=== PATIENT | female | born 1955 | race Caucasian/White ===

== ENCOUNTER 2016-05-11 01:49 | Inpatient (IN) | payer MEDICARE, MEDICAID ==
[~2016-05-11] VITALS: Ht 160 cm; Wt 81.3 kg
[2016-05-11] VITALS (11 sets, daily range): BP systolic 95–129; BP diastolic 51–60; O2SAT 89
[~2016-05-11 01:49] MED LIST: /CELE20CA PO; /ESOM40CA PO; /HYDR1TAB PO; ALB2.5NEB NEB; ALBU17IN INH; ASPI1TAB PO; ASPI325T28 PO; ASPI81TA85 PO; ATIV0.5T3 PO; ATOR1TAB21 PO; AUGM500T34 PO; AZEL0.1S; BACL-67 PO; BACL10TA2 PO; BENA25CA PO; BUSP10TA78 PO; BUSP15TA47 PO; CALCTAB43 PO; CEFT500T PO; CELE-19 PO; CIPR500T89 PO; CITRTAB6 PO; CLIN1LOT TOP; CLON0.5T PO; CLON1TAB PO; CYCL10TA PO; CYMB60CA3 PO; DAILTAB65 PO; DETR4CAP PO; DEXI30CA PO; DOCU100C PO; DOCU10CA PO; DONETAB6 PO; DRIS50002 PO; FAMO1TAB11 PO; FLUT1SPR2; FLUT50SP; FURO40TA2 PO; GABA100C PO; GABA300C2 PO; GABA600T PO; GAS X PO; GAS-80CH PO; HYDR10T PO; ICYHOT TOP; IPRASOL4 NEB; LISI-542 PO; LISI5TAB PO; LORA10TA2 PO; MAG PO; MECL-68 PO; METH10TA PO; MICOCRE PV; MIRA33504 PO; MUCI600T34 PO; MUPI2CRE EX; OXYB15TA PO; PENN1SOL2 TOP; PENNSAID TOP; PERC5TAB6 PO; POLY33502 PO; PRAV80TA2 PO; PRED10TA PO; PRED20TA PO; PROAAER IN; ROPI2TAB PO; SODIGEL; TIZA4CAP3 PO; TRAM50TA2 PO; TYLE325T5 PO; VIST25CA PO; VITAD1000T PO; VOLT1GEL2 EXT; ZITH250T PO; ZOLP12.515 PO; ZONI100C2 PO; ZONI25CA2 PO; [UNRECOGNIZED DRUG - CODE] PO; [UNRECOGNIZED DRUG - CODE] TOP; [UNRECOGNIZED DRUG - MIXTURE] TOP; [UNRECOGNIZED DRUG - OTHER] TOP
[2016-05-11] MEDS ORDERED: IPRATROPIUM 0.5MG/ALBUTEROL 2.5MG INH SOL UD 3ML (DUONEB)(J7620) As Ordered ONE ×2 (02:33→09:03)
[2016-05-11 02:46] LABS: BASO % 0.1 % (0.0-1.0); EOS # 0.2 K/mm3 (0.0-0.50); EOS % 1.8 % (0.0-3.0); LARGE UNSTAINED CELL # 0.2 K/mm3 (0.0-0.4); LARGE UNSTAINED CELL % 1.4 % (0.0-4.0); LYMPH # 0.8 K/mm3 (1.5-4.5); LYMPH % 5.9 % (24.0-44.0); MEAN CORPUSCULAR HEMOGLOBIN 22.7 pg (27.0-33.0); MEAN CORPUSCULAR HGB CONC 29.6 g/dl (32.0-36.5); MEAN CORPUSCULAR VOLUME 76.8 fl (80.0-96.0); MONO # 0.7 K/mm3 (0.0-0.8); MONO % 4.8 % (0.0-5.0); NEUTROPHILS # 11.8 K/mm3 (1.8-7.7); NEUTROPHILS % 85.9 % (36.0-66.0); PLATELET COUNT, AUTOMATED 384 k/mm3 (150-450); RED CELL DISTRIBUTION WIDTH 17.6 % (11.5-14.5); WHITE BLOOD COUNT 13.7 K/mm3 (4.0-10.0)
[2016-05-11 02:56] LABS: ABG BASE EXCESS 6.6 (-2.0-2.0); ABG DEVICE NASAL CANN; ABG HCO3 31.2 MEQ/L (22.0-26.0); ABG PARTIAL PRESSURE CO2 45.1 mmHg (35.0-45.0); ABG PARTIAL PRESSURE O2 61.1 mmHg (75.0-100.0); ABG STANDARD HCO3 30.3 MEQ/L (22.0-26.0); ABG TOTAL CO2 32.6 MEQ/L (23.0-31.0); ABG pH (ARTERIAL) 7.458 UNITS (7.350-7.450)
[2016-05-11 02:57] LABS: ANION GAP 9 MEQ/L (8-16); BLOOD UREA NITROGEN 14 MG/DL (7-18); CALCIUM LEVEL 8.6 MG/DL (8.8-10.2); CARBON DIOXIDE LEVEL 33 MEQ/L (21-32); CHLORIDE LEVEL 103 MEQ/L (98-107); CREATININE FOR GFR 0.59 MG/DL (0.55-1.02); GLOMERULAR FILTRATION RATE > 60.0 (>45); GLUCOSE, FASTING 77 MG/DL (80-110); POTASSIUM SERUM 3.8 MEQ/L (3.5-5.1); SODIUM LEVEL 145 MEQ/L (136-145)
[2016-05-11] MEDS ORDERED: ISOVUE-370 76% 100ML VIAL (Q9967) As Ordered ONE (03:10)
--- NOTE | 2016-05-11 04:00 | REPUSA ---
CLINICAL HISTORY: Shortness of breath. TECHNIQUE: Multiple axial CT images were obtained through chest with IV contrast material. MPR fernandez l and sagittal sequences were obtained. COMMENTS: Comparison is made to the prior exam performed on 04/25/2016. No change in minimal right pleural effusion. Mild increase in left pleural effusion. Mild increase in passive atelectatic airspace disease a stat left lower lobe. No change in enlarged pulmonary arteries suggestive of pulmonary hypertension. No change in chronic interstitial pulmonary fibrosis, interstitial thickening, architectural distorti on and traction bronchiectasis. Increased groundglass densities of the lungs. There is no evidence of pleural or parenchymal mass. Mild increase in mediastinal lymphadenopathy. The visualized portions of the liver are of uniform attenuation without mass or defect. There is no i ntra or extrahepatic biliary ductal dilatation. The spleen is unremarkable. The visualized pancreas is of normal contour and attenuation characteristics. There is no evidence of adrenal mass. The visualized portions of the kidneys present no abnormalities . The bony structures are free of lytic or blastic lesions. Multilevel degenerative changes are seen in volving the thoracic spine. Scattered calcifications are seen involving the aorta and visualized major branches compatible with a therosclerosis. IMPRESSION: No change in minimal right pleural effusion. Mild increase in left pleural effusion. Mild increase in passive atelectatic airspace disease a stat left lower lobe. No change in enlarged pulmonary arteries suggestive of pulmonary hypertension. Increased groundglass densities of the lungs. There is no evidence of pleural or parenchymal mass. Mild increase in mediastinal lymphadenopathy. Thank you for your kind referral of this patient.
[2016-05-11] MEDS ORDERED: ZOSYN 3.375 GM VIAL (J2543) As Ordered ONE (04:25)
[2016-05-11] MEDS ORDERED: IPRATROPIUM 0.5MG/ALBUTEROL 2.5MG INH SOL UD 3ML (DUONEB)(J7620) NEB PRN (05:15)
[2016-05-11] MEDS ORDERED: IPRASOL4 NEB (05:30)
[2016-05-11] MEDS ORDERED: PRED20TA PO (05:30)
[2016-05-11] MEDS ORDERED: FURO40TA2 PO (05:30)
[2016-05-11] MEDS ORDERED: MUCI600T34 PO (05:30)
[2016-05-11] MEDS ORDERED: SIMETHICONE 80 MG CHEW TAB PO PRN (06:00)
[2016-05-11] MEDS ORDERED: hydrOXYzine 10 MG TAB PO PRN (06:00)
[2016-05-11] MEDS ORDERED: MECLIZINE 25 MG TABLET PO PRN (06:00)
[2016-05-11] MEDS ORDERED: MIRALAX *UNIT DOSE* 17GM PACKET PO PRN (06:00)
[2016-05-11] MEDS: ZONISAMIDE 100 MG CAP (ZONEGRAN) PO SCH ×2 (09:00→22:18)
[2016-05-11] MEDS: guaiFENesin ER 600 MG TAB PO SCH ×2 (09:00→21:12)
[2016-05-11] MEDS ORDERED: FUROSEMIDE 40 MG TAB PO SCH (09:00)
[2016-05-11] MEDS ORDERED: predniSONE 20 MG TAB PO SCH (09:00)
[2016-05-11] MEDS: CALCIUM/VITAMIN D 500 MG TAB PO SCH (09:00)
[2016-05-11] MEDS: GABAPENTIN 300 MG CAP PO SCH ×3 (09:00→21:12)
[2016-05-11] MEDS: rOPINIRole 1MG TAB PO SCH ×3 (09:00→21:12)
[2016-05-11] MEDS: ENOXAPARIN 30 MG/0.3 ML SYR (J1650) SC SCH (09:00)
[2016-05-11] MEDS: IPRATROPIUM 0.5MG/ALBUTEROL 2.5MG INH SOL UD 3ML (DUONEB)(J7620) NEB SCH ×3 (09:10→19:32)
[2016-05-11] MEDS ORDERED: ENOXAPARIN 30 MG/0.3 ML SYR (J1650) As Ordered ONE (09:40)
--- NOTE | 2016-05-11 09:44 | REP ---
PORTABLE CHEST: AP portable view of the chest is performed and compared to a prior study of 04/30/2016. Diffuse bilateral infiltrates are present, similar to the prior exam. There is a left pleural effusion. The heart size is not well evaluated. IMPRESSION: Diffuse bilateral infiltrates with mild to moderate left pleural effusion. Signed by Dennis Wall MD 05/11/2016 04:10 P
--- NOTE | 2016-05-11 10:04 | EDDOCDS ---
Physician Documentation [facility] Name: Faiza Bolivar Age: 60 yrs Sex: Female : 1955 Arrival Date: 05/11/2016 Time: 01:49 Bed Admit Hold Private MD: Shy Horvath NP Disposition: 05/11/16 05:11 Hospitalization ordered by Bill Anna for Inpatient Admission. Preliminary diagnosis are Other pneumonia, unspecified organism, Hypoxemia. - Bed requested for ICU. - Status is Inpatient Admission. dwg - Condition is Stable. - Problem is an acute exacerbation. - Symptoms have improved. Historical: - Allergies: No known drug Allergies; - Home Meds: 1. acetaminophen 325 mg Oral tab 2 tabs every 6 hours as needed 2. albuterol sulfate 90 mcg/actuation Inhl aepb 2 puffs every 2 jours as needed 3. aspirin 325 mg Oral tab 1 tab twice a day 4. [place] Saline nasal inha twice a day as needed 5. atorvastatin 20 mg oral tab 1 tab nightly 6. Celebrex 200 mg Oral cap 1 cap once daily 7. cyclobenzaprine 10 mg Oral tab 1 tab daily as needed 8. Cymbalta 60 mg Oral cpDR 1 cap twice a day 9. Dexilant 30 mg oral CpDB 1 cap once daily 10. famotidine 20 mg Oral tab 1 tab once daily 11. gabapentin 600 mg Oral tab 1 tab 3 times per day 12. Hydroxyzine 20 mg Oral 1 tab 4 times per day 13. meclizine 50 mg Oral tab 1 tab 2 times per day as needed 14. Pennsaid 2 % Topical 2 times per day 15. polyethylene glycol 3350 17 gram/dose oral powd once daily as needed 16. ropinirole 2 mg oral tab 1 tab 3 times per day 17. simethicone 166 mg Oral cap before meals as needed 18. tramadol 50 mg Oral tab 1 tab every 6 hours as needed 19. Vitamin D Oral 47489 unit every 2 weeks 20. zonisamide 100 mg oral cap 1 cap 2 times per day - PMHx: Fibromyalgia; GERD; lung cancer; Restless legs; rt breast cancer; Chaudhari's Esophagus; Anxiety; Vertigo; Depression; - PSHx: Elbow, left ulnar nerve; Tonsillectomy; Carpal Tunnel Repair- Right; Lumpectomy- Right; Elbow, right ulnar nerve; partial knee replacement left; left lung surgery; - Social history: Smoking status: Patient states former smoker of tobacco. No barriers to communication noted, The patient speaks fluent [place], Speaks appropriately for age. - Family history: Not pertinent. - : The pt / caregiver states he / she is not on anticoagulants. Home medication list is obtained from [employer] import data. - Exposure Risk Screening:: None identified. Vital Signs: 05/11 02:01 BP 102 / 55; Pulse 83; Resp 24 S; Temp 97.8(TE); Pulse Ox 94% on 6 lpm NC; Weight 82.8 jp4 kg / 182.54 lbs (M); Height 5 ft. 3 in. (160.02 cm) (R); Pain 4/10; 05:08 BP 122 / 45 (auto/); cf2 05:09 Pulse 94 MON; Pulse Ox 91% ; cf2 05:23 BP 132 / 75 (auto/); cf2 05:24 Pulse 92 MON; Pulse Ox 90% ; cf2 06:08 BP 92 / 60 (auto/); dwg 06:08 Pulse 95 MON; Pulse Ox 89% ; dwg 06:23 BP 147 / 62 (auto/); dwg 06:23 Pulse 93 MON; Pulse Ox 93% ; dwg 06:53 BP 137 / 74 (auto/); dwg 06:54 Pulse 95 MON; Pulse Ox 87% ; dwg 06:56 Pulse 87 MON; Pulse Ox 91% ; cf2 07:08 BP 128 / 58 (auto/); cf2 07:09 Pulse 97 MON; Pulse Ox 87% ; cf2 07:19 BP 103 / 60; Pulse 92; Resp 22; Temp 97.2(T); Pulse Ox 94% on R/A; dwg 07:23 BP 80 / 50 (auto/); dwg 07:24 Pulse 92 MON; Pulse Ox 94% ; dwg 08:35 BP 131 / 69; Pulse 92; Resp 20; Pulse Ox 93% on 5 lpm NC; dwg 09:29 BP 120 / 59; Pulse 91; Resp 20; Pulse Ox 92% on 5 lpm NC; Pain 0/10; dwg 02:01 Body Mass Index 32.34 (82.80 kg, 160.02 cm) jp4 MDM: 02:16 -Blood Culture (Adults Only), peripheral from different site, or from device/port/PICC mm11 etc. if present ordered. 02:16 Call Respiratory ordered. 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 mm11 02:16 IV Saline Lock ordered. mm11 02:16 Oxygen at 4L/Min NC or Home dosage ordered. mm11 02:16 Rhythm Strip to chart ordered. mm11 02:16 Albuterol-Ipratropium 3 ml Inhalation once ordered. mm11 02:17 -Arterial Blood Gas Ordered. EDMS 02:17 -Blood Culture Ordered. EDMS 02:17 B-Type Natiuretic Peptide Ordered. EDMS 02:17 Basic Metabolic Profile Ordered. EDMS 02:17 CBC with Diff Ordered. EDMS 02:17 Cardiac Injury Profile Ordered. EDMS 02:17 Troponin Ordered. EDMS 02:17 ECG WITH READING ER PHYS+CARDIAG ordered. EDMS 02:18 Chest, 1 View Ordered. EDMS 02:23 Call Respiratory complete. tmm1 02:25 -Blood Culture (Adults Only), peripheral from different site, or from device/port/PICC tmm1 etc. if present complete. 02:26 BLOOD CULTURES Ordered. EDMS 03:04 -Arterial Blood Gas Reviewed. mm11 03:04 Basic Metabolic Profile Reviewed. mm11 03:04 CBC with Diff Reviewed. mm11 03:04 Cardiac Injury Profile Reviewed. mm11 03:04 Troponin Reviewed. mm11 03:06 CT Chest With Contrast Ordered. EDMS 04:04 Financial registration complete. slh 04:05 B-Type Natiuretic Peptide Reviewed. mm11 04:09 BED REQUEST+ADM ordered. EDMS 04:16 [facility] Payment Agreement was scanned into N(i)² and attached to record. h 04:20 Piperacillin-Tazobactam 3.375 grams IVPB once over 30 mins; dilute in 50mL of NS or D5W mm11 ordered. 05:04 CT Chest With Contrast Reviewed. mm11 05:19 Admission / Observation Status ordered. EDMS 09:39 REGULAR DIET ordered. EDMS Administered Medications: 03:06 Drug: Albuterol-Ipratropium 3 ml [ipratropium-albuterol 0.5 mg-3 mg(2.5 mg base)/3 mL dk nebulization soln (3 mL)] Route: Inhalation; 04:25 Drug: Piperacillin-Tazobactam 3.375 grams [piperacillin-tazobactam 3.375 gram cf2 intravenous solution] Route: IVPB; Infused Over: 30 mins; Site: left antecubital; 07:12 Follow up: Response: No Adverse Reaction cf2 Signatures: Dispatcher [employer] EDDennis Cardoso RN RN dwg Peters, Mary, RN RN mcp Maynard, Matthew, DO mm11 McLear, Ivonne, [employer] SPECIALIST [employer] SPECIALIST tmm1 Sue Doss Hossein Castro RN RN nn1 Mara Davenport RN RN cf2 Ernestine Connors The chart was reviewed and I authenticate all verbal orders and agree with the evaluation and treatment provided.Corrections: (The following items were deleted from the chart) 09:39 05:19 REGULAR DIET ordered. EDMS EDMS Attachments: 04:16 [facility] Payment Agreement [facility] MTDD
--- NOTE | 2016-05-11 10:04 | EDDOCDS ---
Nurse's Notes [facility] Name: Faiza Bolivar Age: 60 yrs Sex: Female : 1955 Arrival Date: 05/11/2016 Time: 01:49 Bed Admit Hold Private MD: Shy Horvath NP Diagnosis: Other pneumonia, unspecified organism;Hypoxemia Presentation: 05/11 01:55 Presenting complaint: EMS states: patient admitted for pneumonia 3 weeks ago, patient nn1 reports difficulty breathing began this AM, progressively worsening symptoms. Patient had 1 duoneb treatment at 0000. Patient placed on 10L nonrebreather by EMS, O2 saturation increased from 86% to 99%. Adult Sepsis Screening: The patient does not have new or worsening altered mentation. Patient's respiratory rate is less than 22. Systolic blood pressure is greater than 100. Patient has a qSOFA score of 0- Negative Sepsis Screen. Suicide/Homicide risk assessment- the patient denies having any suicidal and/or homicidal ideations and does not present with any other emotional, behavioral or mental health complaints. Status: Patient is not a technical service specialist or dependent. Transition of care: patient was not received from another setting of care. 01:55 Acuity: ERROL Level 3 nn1 01:55 Method Of Arrival: Ambulance nn1 Triage Assessment: 02:01 General: Appears in no apparent distress, comfortable, Behavior is appropriate for age, nn1 cooperative. Pain: Denies pain. HIV screening NA for this visit Offered previously. The patient is triaged at the bedside. See Assessment in Nurses Notes section of ED record. Respiratory: Onset: The symptoms/episode began/occurred yesterday, Airway is patent Respiratory effort is even, Respiratory pattern is regular, Breath sounds are clear bilaterally. Derm: Skin is yellow. Historical: - Allergies: No known drug Allergies; - Home Meds: 1. acetaminophen 325 mg Oral tab 2 tabs every 6 hours as needed 2. albuterol sulfate 90 mcg/actuation Inhl aepb 2 puffs every 2 jours as needed 3. aspirin 325 mg Oral tab 1 tab twice a day 4. Ashuelot Saline nasal inha twice a day as needed 5. atorvastatin 20 mg oral tab 1 tab nightly 6. Celebrex 200 mg Oral cap 1 cap once daily 7. cyclobenzaprine 10 mg Oral tab 1 tab daily as needed 8. Cymbalta 60 mg Oral cpDR 1 cap twice a day 9. Dexilant 30 mg oral CpDB 1 cap once daily 10. famotidine 20 mg Oral tab 1 tab once daily 11. gabapentin 600 mg Oral tab 1 tab 3 times per day 12. Hydroxyzine 20 mg Oral 1 tab 4 times per day 13. meclizine 50 mg Oral tab 1 tab 2 times per day as needed 14. Pennsaid 2 % Topical 2 times per day 15. polyethylene glycol 3350 17 gram/dose oral powd once daily as needed 16. ropinirole 2 mg oral tab 1 tab 3 times per day 17. simethicone 166 mg Oral cap before meals as needed 18. tramadol 50 mg Oral tab 1 tab every 6 hours as needed 19. Vitamin D Oral 95633 unit every 2 weeks 20. zonisamide 100 mg oral cap 1 cap 2 times per day - PMHx: Fibromyalgia; GERD; lung cancer; Restless legs; rt breast cancer; Chaudhari's Esophagus; Anxiety; Vertigo; Depression; - PSHx: Elbow, left ulnar nerve; Tonsillectomy; Carpal Tunnel Repair- Right; Lumpectomy- Right; Elbow, right ulnar nerve; partial knee replacement left; left lung surgery; - Social history: Smoking status: Patient states former smoker of tobacco. No barriers to communication noted, The patient speaks fluent French, Speaks appropriately for age. - Family history: Not pertinent. - : The pt / caregiver states he / she is not on anticoagulants. Home medication list is obtained from [employer] import data. - Exposure Risk Screening:: None identified. Screenin:00 Screening information is obtained from the patient, the caregiver. Fall risk: At risk cf2 due to gait disturbance, O2 dependent, chronic shortness of breath . Assistance ADL's: Requires assistance with toileting, assistance is provided by ambulation, assistance is provided by housework, assistance is provided by. Abuse/DV Screen: The patient / caregiver reports he/she is: not in a situation that causes fear, pain or injury. Nutritional screening: No deficits noted. Advance Directives: There is an active DNR order and the pt has a copy here at this time. Further advance directive information is declined. home support is adequate. Assessment: 02:00 General: Appears uncomfortable. Pain: Denies pain. Neurological: No deficits noted. cf2 EENT: No deficits noted. Cardiovascular: No deficits noted. Rhythm is sinus rhythm. Cardiovascular: Chest pain is denied There has been no movement of pain. Reports shortness of breath. Respiratory: Airway is patent Respiratory effort is labored, pursed lip, with retractions, Respiratory pattern is tachypnea Breath sounds with rales Reports shortness of breath the patient has severe shortness of breath Parent/caregiver reports the patient having Per patient and sister (caregiver), patient was admitted here as patient approx 3 weeks ago for pleural effusion and pneumonia. Per patient. "they took 2 liters off on the left and i had pneumonia on the right side". GI: No deficits noted. : No deficits noted. Derm: No deficits noted. Musculoskeletal: No deficits noted. 02:00 Reassessment: Patient states symptoms have improved. cf2 04:39 Adult Sepsis Screening: The patient does not have new or worsening altered mentation. cf2 Patient has a respiratory rate of greater than or equal to 22 (1 point). Systolic blood pressure is greater than 100. Patient has a qSOFA score of 1- Negative Sepsis Screen. 07:01 General: Report received by Mara Carreon RN, awake and alert, visiting with dwg family member.. 07:20 General: Appears in no apparent distress, Behavior is cooperative, pleasant, Awake and dwg alert, sitting up in bed visiting with family members, NSR on monitor, denies chest pain.. 08:26 General: Appears in no apparent distress, Behavior is cooperative. Pain: Denies pain. dwg Neurological: Level of Consciousness is awake, alert, Oriented to person, place, time. Cardiovascular: Rhythm is sinus rhythm No ectopy. 08:35 General: Appears in no apparent distress, Behavior is cooperative. Neurological: Level dwg of Consciousness is awake, alert, Oriented to person, place, time. Respiratory: Airway is patent Respiratory effort is even, Respiratory pattern is regular, Breath sounds are diminished in left upper lobe and left lower lobe. 09:29 General: Appears in no apparent distress, Behavior is cooperative, Awake and alert, ate dwg 50% of breakfast tray, denies chest discomfort or shortness of breath. Family members present.. 09:52 General: Appears in no apparent distress, Behavior is cooperative, pleasant. Pain: dwg Denies pain. Neurological: Level of Consciousness is awake, alert, Oriented to person, place, time. Cardiovascular: Rhythm is sinus rhythm No ectopy. Respiratory: Airway is patent Respiratory effort is Slightly labored. 09:55 General: Report called to Inga in ICU.. [facility] Vital Signs: 02:01 BP 102 / 55; Pulse 83; Resp 24 S; Temp 97.8(TE); Pulse Ox 94% on 6 lpm NC; Weight 82.8 jp4 kg (M); Height 5 ft. 3 in. (160.02 cm) (R); Pain 4/10; 05:08 BP 122 / 45 (auto/); cf2 05:09 Pulse 94 MON; Pulse Ox 91% ; cf2 05:23 BP 132 / 75 (auto/); cf2 05:24 Pulse 92 MON; Pulse Ox 90% ; cf2 06:08 BP 92 / 60 (auto/); dwg 06:08 Pulse 95 MON; Pulse Ox 89% ; dwg 06:23 BP 147 / 62 (auto/); dwg 06:23 Pulse 93 MON; Pulse Ox 93% ; dwg 06:53 BP 137 / 74 (auto/); dwg 06:54 Pulse 95 MON; Pulse Ox 87% ; dwg 06:56 Pulse 87 MON; Pulse Ox 91% ; cf2 07:08 BP 128 / 58 (auto/); cf2 07:09 Pulse 97 MON; Pulse Ox 87% ; cf2 07:19 BP 103 / 60; Pulse 92; Resp 22; Temp 97.2(T); Pulse Ox 94% on R/A; dwg 07:23 BP 80 / 50 (auto/); dwg 07:24 Pulse 92 MON; Pulse Ox 94% ; dwg 08:35 BP 131 / 69; Pulse 92; Resp 20; Pulse Ox 93% on 5 lpm NC; dwg 09:29 BP 120 / 59; Pulse 91; Resp 20; Pulse Ox 92% on 5 lpm NC; Pain 0/10; dwg 02:01 Body Mass Index 32.34 (82.80 kg, 160.02 cm) jp4 Vitals: 04:47 Log In Time N/A - ambulance arrival. cf2 ED Course: 01:50 Patient visited by Ivonne Everett PCA. tmm1 01:50 Shy Horvath is Private Physician. tmm1 01:50 Patient moved to Waiting tmm1 01:50 Patient moved to 3 tmm1 01:57 Triage Initiated nn1 02:00 The patient / caregiver is instructed regarding the plan of care and ED course. Cardiac cf2 monitor on. Pulse ox on. NIBP on. Door closed. Noise minimized. Visitors limited. Lights dimmed. Moved to private room. PO fluids given. Verbal reassurance given. Warm blanket given. Pillow given. Diet: Patient given ice chips. Tolerated well. 02:00 Inserted saline lock: 20 gauge in left antecubital area and blood collected. The cf2 patient tolerated the procedure well. No procedures done that require assistance. Response to O2 therapy: Other With severe dyspnea NRB placed, when dyspnea resolves home O2 at 6 lpm nasal cannula applied. 02:03 Patient visited by Anshu Barros. jp4 02:03 Patient has correct armband on for positive identification. Placed in gown. Bed in low jp4 position. Call light in reach. Side rails up X2. 02:05 Rogers Cha DO is Attending Physician. mm11 02:05 Patient visited by Rogers Cha DO. mm11 02:16 Patient visited by Rogers Cha DO. mm11 02:30 EKG done. (by ED staff). Reviewed by Rogers Cha DO. jmv 02:32 Patient visited by Lai Baires PCA. jmv 02:32 Patient visited by Lai Baires PCA. jmv 02:34 Mara Davenport,YAEL is Primary Nurse. cf2 03:01 Patient moved to Radiology jason 03:02 Patient moved to 3 jason 03:46 Patient visited by Mara Davenport RN. cf2 04:07 CT Chest With Contrast Returned. EDMS 04:16 Patient name changed from Faiza\\S\\Estela\\S\\Anabaptism\\S\\ to Faiza\\S\\M\\S\\Anabaptism. EDMS 04:16 [facility] Payment Agreement was scanned into [employer] and attached to record. slh 04:23 Patient visited by Mara Davenport,YAEL. cf2 04:38 Patient visited by Mara Davenport,YAEL. cf2 05:10 Patient visited by Rogers Cha DO. mm11 05:10 Bill Anna is Hospitalizing Provider. mm11 05:42 Patient moved to Admit Hold sls1 06:43 Assisted to bedside commode. carly 06:44 Patient visited by Gaby Caal PCA. carly 07:02 Patient visited by Dennis Roberts RN. dwg 07:21 Patient visited by Dennis Roberts RN. dwg 08:27 Patient visited by Dennis Roberts RN. dwg 08:36 Patient visited by Dennis Roberts RN. dwg 09:30 Patient visited by Dennis Roberts RN. dwg 09:59 Patient visited by Dennis Roberts RN. dwg 10:03 Patient visited by Dennis Roberts RN. dwg Administered Medications: 03:06 Drug: Albuterol-Ipratropium 3 ml [ipratropium-albuterol 0.5 mg-3 mg(2.5 mg base)/3 mL dk nebulization soln (3 mL)] Route: Inhalation; 04:25 Drug: Piperacillin-Tazobactam 3.375 grams [piperacillin-tazobactam 3.375 gram cf2 intravenous solution] Route: IVPB; Infused Over: 30 mins; Site: left antecubital; 07:12 Follow up: Response: No Adverse Reaction cf2 RT: 03:06 ABG's drawn from left radial artery drawn from left brachial artery pressure held for 5 dk minuntes no bleeding noted pressure bandage applied specimen sent pt. tolerated well. 03:07 Initial Med Neb Given as ordered Patient was instructed and evaluated on procedure dk Patient tolerated procedure well without adverse effect. O2 via nasal cannula \\T\\ 5L/min. Respiratory: Airway is patent Respiratory effort is even, Respiratory pattern is regular symmetrical, Order Results: Lab Order: -Arterial Blood Gas; SPEC'M 05/11/16 02:50 Test: ABG pH (ARTERIAL); Value: 7.458; Range: 7.350-7.450; Abnormal: Above high normal; Units: UNITS; Status: F Test: ABG PARTIAL PRESSURE CO2; Value: 45.1; Range: 35.0-45.0; Abnormal: Above high normal; Units: mmHg; Status: F Test: ABG PARTIAL PRESSURE O2; Value: 61.1; Range: 75.0-100.0; Abnormal: Below low normal; Units: mmHg; Status: F Test: ABG TOTAL CO2; Value: 32.6; Range: 23.0-31.0; Abnormal: Above high normal; Units: MEQ/L; Status: F Test: ABG HCO3; Value: 31.2; Range: 22.0-26.0; Abnormal: Above high normal; Units: MEQ/L; Status: F Test: ABG BASE EXCESS; Value: 6.6; Range: -2.0-2.0; Abnormal: Above high normal; Status: F Test: ABG STANDARD HCO3; Value: 30.3; Range: 22.0-26.0; Abnormal: Above high normal; Units: MEQ/L; Status: F Test: ABG O2 SATURATION; Value: 91.9; Range: 95.0-99.0; Abnormal: Below low normal; Units: %; Status: F Test: ABG DEVICE; Value: NASAL MORAIMA; Status: F Lab Order: B-Type Natiuretic Peptide; [facility] 05/11/16 02:21 Test: BRAIN NATRIURETIC PEPTIDE; Value: 96.9; Range: <100; Units: PG/ML; Status: F Lab Order: Basic Metabolic Profile; [facility] 05/11/16 02:21 Test: GLUCOSE, FASTING; Value: 77; Range: 80-110; Abnormal: Below low normal; Units: MG/DL; Status: F Test: BLOOD UREA NITROGEN; Value: 14; Range: 7-18; Units: MG/DL; Status: F Test: CREATININE FOR GFR; Value: 0.59; Range: 0.55-1.02; Units: MG/DL; Status: F Test: GLOMERULAR FILTRATION RATE; Value: > 60.0; Range: >45; Status: F Test: SODIUM LEVEL; Value: 145; Range: 136-145; Units: MEQ/L; Status: F Test: POTASSIUM SERUM; Value: 3.8; Range: 3.5-5.1; Units: MEQ/L; Status: F Test: CHLORIDE LEVEL; Value: 103; Range: 98-107; Units: MEQ/L; Status: F Test: CARBON DIOXIDE LEVEL; Value: 33; Range: 21-32; Abnormal: Above high normal; Units: MEQ/L; Status: F Test: ANION GAP; Value: 9; Range: 8-16; Units: MEQ/L; Status: F Test: CALCIUM LEVEL; Value: 8.6; Range: 8.8-10.2; Abnormal: Below low normal; Units: MG/DL; Status: F Test Note: ; Units are mL/min/1.73 m2 Chronic Kidney Disease Staging per NKF: Stage I & II GFR >=60 Normal to Mildly Decreased Stage III GFR 30-59 Moderately Decreased Stage IV GFR 15-29 Severely Decreased Stage V GFR <15 Very Little GFR Left ESRD GFR <15 on KNOT TIER Lab Order: CBC with Diff; SPEC'M 05/11/16 02:21 Test: WHITE BLOOD COUNT; Value: 13.7; Range: 4.0-10.0; Abnormal: Above high normal; Units: K/mm3; Status: F Test: RED BLOOD COUNT; Value: 4.81; Range: 4.00-5.40; Units: M/mm3; Status: F Test: HEMOGLOBIN; Value: 10.9; Range: 12.0-16.0; Abnormal: Below low normal; Units: g/dl; Status: F Test: HEMATOCRIT; Value: 37.0; Range: 36.0-47.0; Units: %; Status: F Test: MEAN CORPUSCULAR VOLUME; Value: 76.8; Range: 80.0-96.0; Abnormal: Below low normal; Units: fl; Status: F Test: MEAN CORPUSCULAR HEMOGLOBIN; Value: 22.7; Range: 27.0-33.0; Abnormal: Below low normal; Units: pg; Status: F Test: MEAN CORPUSCULAR HGB CONC; Value: 29.6; Range: 32.0-36.5; Abnormal: Below low normal; Units: g/dl; Status: F Test: RED CELL DISTRIBUTION WIDTH; Value: 17.6; Range: 11.5-14.5; Abnormal: Above high normal; Units: %; Status: F Test: PLATELET COUNT, AUTOMATED; Value: 384; Range: 150-450; Units: k/mm3; Status: F Test: NEUTROPHILS %; Value: 85.9; Range: 36.0-66.0; Abnormal: Above high normal; Units: %; Status: F Test: LYMPH %; Value: 5.9; Range: 24.0-44.0; Abnormal: Below low normal; Units: %; Status: F Test: MONO %; Value: 4.8; Range: 0.0-5.0; Units: %; Status: F Test: EOS %; Value: 1.8; Range: 0.0-3.0; Units: %; Status: F Test: BASO %; Value: 0.1; Range: 0.0-1.0; Units: %; Status: F Test: LARGE UNSTAINED CELL %; Value: 1.4; Range: 0.0-4.0; Units: %; Status: F Test: NEUTROPHILS #; Value: 11.8; Range: 1.8-7.7; Abnormal: Above high normal; Units: K/mm3; Status: F Test: LYMPH #; Value: 0.8; Range: 1.5-4.5; Abnormal: Below low normal; Units: K/mm3; Status: F Test: MONO #; Value: 0.7; Range: 0.0-0.8; Units: K/mm3; Status: F Test: EOS #; Value: 0.2; Range: 0.0-0.50; Units: K/mm3; Status: F Test: BASO #; Value: 0.0; Range: 0.0-0.2; Units: K/mm3; Status: F Test: LARGE UNSTAINED CELL #; Value: 0.2; Range: 0.0-0.4; Units: K/mm3; Status: F Lab Order: Cardiac Injury Profile; [facility] 05/11/16 02:21 Test: CPK CREATINE PHOSPHOKINASE; Value: 24; Range: 26-192; Abnormal: Below low normal; Units: U/L; Status: F Test: CK-MB VALUE MASS; Value: 1.0; Range: 0.0-3.6; Units: NG/ML; Status: F Test: MB/CK RELATIVE INDEX; Value: 4.16; Range: < OR =4; Abnormal: Above high normal; Status: F Test Note: ; DIAGNOSIS CRITERIA MMB ng/ml Relative Index (RI) NON-AMI < or = 5 N/A [place] > 5 < or = 4 AMI > 5 > 4 Lab Order: Troponin; [facility] 05/11/16 02:21 Test: TROPONIN I; Value: 0.04; Range: < 0.10; Units: NG/ML; Status: F Test Note: ; Troponin I Reference Interval for [employer] [place] LOCI: 99th Percentile= 0.00-0.045 ng/ml Risk Stratification: <= 0.10 ng/ml Decreased Risk for Adverse Clinical Events. 0.10-1.50 ng/ml Increased Risk for Adverse Clinical Events. Evaluation of additional criterion and/or repeat testing in 2-6 hours is suggested to rule out myocardial damage. >= 1.50 ng/ml Indicative of Myocardial Injury. Radiology Order: CT Chest With Contrast Test: CT Chest With Contrast REASON FOR EXAMINATION: Shortness of Breath; ; CLINICAL HISTORY: Shortness of breath.; TECHNIQUE: Multiple axial CT images were obtained through chest with IV contrast material. MPR fernandez; l and sagittal sequences were obtained.; COMMENTS:; Comparison is made to the prior exam performed on 04/25/2016.; No change in minimal right pleural effusion.; Mild increase in left pleural effusion.; Mild increase in passive atelectatic airspace disease a stat left lower lobe.; No change in enlarged pulmonary arteries suggestive of pulmonary hypertension.; No change in chronic interstitial pulmonary fibrosis, interstitial thickening, architectural distorti; on and traction bronchiectasis.; Increased groundglass densities of the lungs.; There is no evidence of pleural or parenchymal mass.; Mild increase in mediastinal lymphadenopathy.; The visualized portions of the liver are of uniform attenuation without mass or defect. There is no i; ntra or extrahepatic biliary ductal dilatation.; The spleen is unremarkable.; The visualized pancreas is of normal contour and attenuation characteristics.; There is no evidence of adrenal mass. The visualized portions of the kidneys present no abnormalities; .; The bony structures are free of lytic or blastic lesions. Multilevel degenerative changes are seen in; volving the thoracic spine.; Scattered calcifications are seen involving the aorta and visualized major branches compatible with a; therosclerosis.; IMPRESSION:; No change in minimal right pleural effusion.; Mild increase in left pleural effusion.; Mild increase in passive atelectatic airspace disease a stat left lower lobe.; No change in enlarged pulmonary arteries suggestive of pulmonary hypertension.; Increased groundglass densities of the lungs.; There is no evidence of pleural or parenchymal mass.; Mild increase in mediastinal lymphadenopathy.; Thank you for your kind referral of this patient.; ; ; Outcome: 02:00 CT Study completed. cf2 05:11 Decision to Hospitalize by Provider. mm11 10:02 Discharge Assessment: patient administered narcotics - no. Admitted to ICU accompanied dwg by nurse, accompanied by tech, via stretcher, with oxygen, on monitor, with chart. Condition: stable. Property :Personal belongings accompany Pt. 10:03 The following High Risk Discharge criteria are identified: None. dwg 10:03 Patient left the ED. dwg Signatures: Dispatcher [employer] EDDennis Cardoso, RN RN dwg Juan M Mcintyre Dianna,RT RT Rogers Yuen, DO DO mm11 Gaby Caal, CUSTOMS PATROL OFFICER CUSTOMS PATROL OFFICER carly Adrianne Spivey, RN RN sls1 Ivonne Everett, CUSTOMS PATROL OFFICER CUSTOMS PATROL OFFICER tmm1 Anshu Barros jp4 Sue Doss Nikkole,YAEL RN nn1 Mara Davenport,RN RN cf2 Lai Baires, CUSTOMS PATROL OFFICER CUSTOMS PATROL OFFICER jmv MTDD
--- NOTE | 2016-05-11 10:34 | IPN ---
DATE: 05/11/2016 Faiza is seen in the emergency room. She is in an interim bed. She was admitted with shortness of breath. She had just been discharged 05/03/2016, was stable on discharge, became increasingly short of breath over the last few days and was readmitted. She has a history of recent community acquired pneumonia. She has severe chronic obstructive pulmonary disease (COPD) on chronic high flow supplemental oxygen 6 liters nasal cannula. She has recurrent pleural effusion, history of lung cancer, and tobacco abuse. She is followed by Dr. Mejia at [facility]. She was started on Zosyn and kept on her discharge dose of prednisone and her discharge dose of furosemide. She feels short of breath with minimal exertion. Short of breath with prolonged talking in the emergency room. PHYSICAL EXAMINATION: Vital signs per flow sheet. Oxygen saturation 89% on 6 liters. GENERAL APPEARANCE: Chronically ill appearing, dyspneic with prolonged speaking. HEENT: She is cushingoid. LUNGS: Have decreased breath sounds. Rales at both bases. HEART: Regular rate and rhythm. ABDOMEN: Soft, nontender. 1+ peripheral edema. LABORATORIES: White count 13.7, hemoglobin 10.9, platelets 284, sodium 145, potassium 3.8, BUN 14, creatinine 0.5. Chest x-ray was reviewed with Dr. Arias. No discreet infiltrate. Looks like a pulmonary edema pattern. IMPRESSION: 1. Acute respiratory failure superimposed on chronic respiratory failure. Looks like decompensated heart failure. Will start a sliding scale of Lasix, trying to maintain to 1.5 liter net diuresis daily. She had an echocardiogram done on 04/19/2016 which showed normal left ventricular ejection fraction (LVEF), moderate pulmonary hypertension, left atrial enlargement, ejection fraction 65%. 2. Recent community acquired pneumonia. I do not see any strong evidence of pneumonia currently. This case was discussed with Dr. Arias. He recommended to continue Zosyn for now. I will get a respiratory panel. 3. Chronic obstructive pulmonary disease (COPD) exacerbation. Stop by mouth steroids and begin IV steroids. Continue bronchodilator. Pulmonary consulted at patient request. 4. History of lung cancer status post prophylactic total brain radiation. Was smoking until recently. Incidentally, Dr. Mejia has concern that she still has malignancy present. Follows as an outpatient. 5. Advanced directives. She has a Medical Order for Life-Sustaining Treatment (MOLST) form from her last admission. She is DO NOT RESUSCITATE, DO NOT INTUBATE status. Does want hospitalization and antibiotics, would not want a feeding tube but would want IV fluids.
[2016-05-11] MEDS: DULoxetine 30 MG CAP (CYMBALTA) PO SCH ×2 (11:05→21:11)
[2016-05-11] MEDS: oxyBUTYnin *DITROPAN XL* 5 MG TABCR PO SCH (11:06)
[2016-05-11] MEDS: ASPIRIN 81 MG ENTERIC TAB PO SCH (11:06)
[2016-05-11] MEDS: POTASSIUM CHLORIDE 10 MEQ SR TABLET PO SCH ×2 (11:07→21:12)
[2016-05-11] MEDS: methylPREDNISolone INJ 125 MG/2 ML VIAL (J2930) IV SCH ×2 (11:07→21:11)
[2016-05-11] MEDS: FAMOTIDINE 20 MG TAB PO SCH (11:35)
[2016-05-11] MEDS: FUROSEMIDE 100 MG/10 ML VIAL (J1940) IV SCH ×2 (11:37→18:00)
[2016-05-11] MEDS ORDERED: CelecoXIB (CeleBREX) 100 MG CAP PO SCH (12:00)
[2016-05-11] MEDS: PIPERACILLIN/TAZOBACTAM SOD 3.375 GM in D5W MINI-BAG PLUS 50 ML IV SCH ×2 (13:22→21:11)
[2016-05-11] MEDS: ACETAMINOPHEN 325 MG TAB PO PRN (13:23)
[2016-05-11] MEDS ORDERED: SLF 3 ML SYR IV PRN (14:00)
[2016-05-11] MEDS: SLF 3 ML SYR IV SCH ×2 (14:00→21:12)
--- NOTE | 2016-05-11 19:06 | ECGEPIP ---
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
[2016-05-11] MEDS: ATORVASTATIN 20 MG TAB PO SCH (21:11)
[2016-05-12] VITALS (7 sets, daily range): BP systolic 101–121; BP diastolic 51–58; O2SAT 94
[2016-05-12] MEDS: FUROSEMIDE 100 MG/10 ML VIAL (J1940) IV SCH ×3 (00:06→12:42)
--- NOTE | 2016-05-12 00:26 | HPE ---
DATE OF ADMISSION: 05/11/2016 REASON FOR ADMISSION: Shortness of breath PRIMARY CARE PROVIDER: Ayde Horvath HISTORY OF PRESENT ILLNESS: The patient is a 60-year-old female with a past medical history significant for lung cancer status post chemoradiation, presented to the emergency room complaining of shortness of breath. The patient was recently admitted for pneumonia three weeks ago. Completed a course of antibiotics. Stated that over the past week, she has been feeling progressively worsening shortness of breath, chills, subjective fevers and dry cough. The patient normally on oxygen 6 liters. Today, she has been requiring more. Stated she gets short of breath with minimal activity. Finally called the ambulance and was brought in. She was found to have oxygen saturation to be 86%. She was placed on 10 liters non-rebreather by [facility] ([facility]). CT scan of her lungs were done. It showed no change in the right pleural effusion, mild increase in the left pleural effusion, increase in atelectatic air space disease in the left lower lobe. Evidence of pulmonary hypertension, increased ground-glass densities of the lung, no evidence of pleural or parenchymal masses. Hospitalist was called for an admission for family practice group REVIEW OF SYSTEMS: 12-point review of systems obtained all which was negative except for those mentioned above. PAST MEDICAL HISTORY: Significant for mild fibromyalgia, gastroesophageal reflux disease, history of lung cancer status post chemoradiation, restless leg, right breast cancer, Chaudhari esophagus and anxiety, vertigo, depression. PAST SURGICAL HISTORY: Bilateral elbow surgery, tonsillectomy, carpal tunnel repair, lumpectomy on the right, partial knee replacement and thoracentesis. SOCIAL HISTORY: The patient has history of tobacco abuse, but quit. Drinks occasionally. Lives at home with her sister. ALLERGIES: She has no known drug allergies. FAMILY HISTORY: Noncontributory. HOME MEDICATIONS INCLUDE: - Tylenol 650 mg by mouth as needed for pain - Ventolin 2 puffs inhaled every 2 hours as needed for shortness of breath - aspirin 81 mg by mouth daily - atorvastatin 20 mg by mouth at bedtime - calcium with vitamin D - Celebrex 200 mg by mouth daily - Cymbalta 50 mg by mouth daily - famotidine 20 mg by mouth daily - Lasix 40 mg by mouth daily - gabapentin 600 mg by mouth three times a day - Mucinex 600 mg by mouth twice a day - hydroxyzine as needed for itching - meclizine 25 mg by mouth as needed for dizziness - oxybutynin 50 mg by mouth daily - MiraLax as needed for constipation - prednisone 20 mg by mouth daily - Requip 2 mg by mouth three times a day - Gas-X as needed for gas pain. - nasal spray - tramadol 50 mg as needed for pain - vitamin D 92573 units every two weeks - Zonegran 100 mg by mouth twice a day PHYSICAL EXAMINATION: VITALS: On admission, blood pressure 102/55, pulse 83, respiratory rate 24, temperature 97.8. HEENT: Pupils equal round reactive to light and accommodation. NECK: Supple. No jugular venous distension (JVD). LUNGS: Diminished breath sounds in all lung mitchell. CARDIAC: Regular rate and rhythm. ABDOMEN: Soft, nontender, nondistended. EXTREMITIES: No clubbing, cyanosis or edema. NEURO: Cranial nerves II-XII grossly intact. No focal deficits. LABORATORY FINDINGS: Blood gas pH 7.45, pCO2 45, pO2 61, bicarbonate 31.2. White blood count (WBC) is 13.7, hemoglobin 10.9, hematocrit 37, platelet count 384. Sodium 145, potassium 3.8, chloride 103, BUN 14, creatinine 0.59, troponin 0.04, BNP 96.9. IMAGING: As above. ASSESSMENT/PLAN: 1. Shortness of breath, likely secondary to chronic obstructive pulmonary disease (COPD) versus lung fibrosis versus pulmonary effusion. The patient normally sees Dr. Sierra will continue oxygen supplementation. Continue DuoNeb as needed and scheduled. The patient was started on Zosyn in the emergency room. We will continue. The patient may require another thoracentesis 2. History of lung cancer status post chemoradiation. The patient completed chemoradiation in February. She was diagnosed small-cell lung cancer. 3. Mild leukocytosis likely reactive secondary to steroid versus infection. 4. History of gastroesophageal reflux disease. Continue home medication. 5. History of restless leg, continue Requip 6. History of anxiety. Continue the patient's home medication. 7. Deep vein thrombosis (DVT) prophylaxis. Lovenox subcutaneously daily.
[2016-05-12] MEDS: IPRATROPIUM 0.5MG/ALBUTEROL 2.5MG INH SOL UD 3ML (DUONEB)(J7620) NEB SCH ×4 (01:24→20:14)
[2016-05-12 05:21] LABS: MEAN CORPUSCULAR HEMOGLOBIN 22.8 pg (27.0-33.0); MEAN CORPUSCULAR HGB CONC 31.2 g/dl (32.0-36.5); MEAN CORPUSCULAR VOLUME 72.9 fl (80.0-96.0); RED CELL DISTRIBUTION WIDTH 18.9 % (11.5-14.5)
[2016-05-12 05:35] LABS: ALBUMIN/GLOBULIN RATIO 0.73 (1.00-1.93); ALKALINE PHOSPHATASE 149 U/L (45-117); ALT/SGPT 25 U/L (12-78); ANION GAP 7 MEQ/L (8-16); AST/SGOT 6 U/L (15-37); BILIRUBIN,TOTAL 0.3 MG/DL (0.2-1.0); BLOOD UREA NITROGEN 18 MG/DL (7-18); CALCIUM LEVEL 9.2 MG/DL (8.8-10.2); CARBON DIOXIDE LEVEL 37 MEQ/L (21-32); CHLORIDE LEVEL 96 MEQ/L (98-107); CREATININE FOR GFR 0.72 MG/DL (0.55-1.02); GLOMERULAR FILTRATION RATE > 60.0 (>45); GLUCOSE, FASTING 126 MG/DL (80-110); POTASSIUM SERUM 4.1 MEQ/L (3.5-5.1); SODIUM LEVEL 140 MEQ/L (136-145); TOTAL PROTEIN 7.1 GM/DL (6.4-8.2)
[2016-05-12] MEDS: PIPERACILLIN/TAZOBACTAM SOD 3.375 GM in D5W MINI-BAG PLUS 50 ML IV SCH ×3 (05:41→21:38)
[2016-05-12] MEDS: SLF 3 ML SYR IV SCH ×3 (05:44→21:34)
[2016-05-12] MEDS: POTASSIUM CHLORIDE 10 MEQ SR TABLET PO SCH ×2 (08:29→21:34)
[2016-05-12] MEDS: ASPIRIN 81 MG ENTERIC TAB PO SCH (08:29)
[2016-05-12] MEDS: CALCIUM/VITAMIN D 500 MG TAB PO SCH (08:29)
[2016-05-12] MEDS: GABAPENTIN 300 MG CAP PO SCH ×3 (08:29→21:36)
[2016-05-12] MEDS: guaiFENesin ER 600 MG TAB PO SCH ×2 (08:29→21:36)
[2016-05-12] MEDS: rOPINIRole 1MG TAB PO SCH ×3 (08:29→21:36)
[2016-05-12] MEDS: ZONISAMIDE 100 MG CAP (ZONEGRAN) PO SCH ×2 (08:30→21:37)
[2016-05-12] MEDS: DULoxetine 30 MG CAP (CYMBALTA) PO SCH ×2 (08:30→21:36)
[2016-05-12] MEDS: ENOXAPARIN 30 MG/0.3 ML SYR (J1650) SC SCH (08:30)
[2016-05-12] MEDS ORDERED: guaiFENesin ER 600 MG TAB PO ONE (08:45)
[2016-05-12] MEDS: BISACODYL 10 MG SUPP PR SCH ×2 (09:00→21:37)
[2016-05-12] MEDS ORDERED: guaiFENesin ER 600 MG TAB PO SCH (09:00)
[2016-05-12] MEDS: oxyBUTYnin *DITROPAN XL* 5 MG TABCR PO SCH (10:05)
[2016-05-12] MEDS: methylPREDNISolone INJ 125 MG/2 ML VIAL (J2930) IV SCH ×2 (10:05→21:34)
--- NOTE | 2016-05-12 10:58 | IPNPDOC ---
Assessment/Plan Date Seen The patient was seen on 05/12/16. Patient Summary Patient admitted 05/11/2016 for acute shortness of breath Problems Problems: (1) Shortness of breath Status: Acute Problem Text: Patient is improved somewhat on antibiotics and steroids. She continues to have a large pleural effusion, which is stable from previous. Her previous thoracentesis from her past admission yielded 1200 mL of yellow fluid. Cytology was negative for malignancy. Cytology was read as reactive mesothelial cells and admixed white blood cells. Acid-fast smear was negative. Sputum culture showed moderate gram-positive cocci in clusters. Pleural fluid grew no bacteria, and no organisms were seen on smear. Unclear whether or not there is any infectious etiology, however her previous studies do not indicate an infective source. It was also negative for malignancy. She does have a somewhat protuberant belly, so it is possible that this is ascitic fluid from her belly. BNP was 67 making acute heart failure less likely. She is currently diuresed 3 L. - Pulmonology consulting, appreciate recommendations - Continue ceftriaxone and prednisone for possible exacerbation of COPD versus underlying pneumonia - Continue supplemental oxygen to maintain saturations above 90 - Out of bed with assistance ad maria eugenia - Right upper quadrant ultrasound to evaluate liver of evidence of abdominal fluid (2) Pleural effusion Status: Acute Response to Treatment: Stable Problem Text: No major changes noted on CT. Patient was previously tapped on last admission. BNP is normal, making CHF less likely. Patient has diuresed 3 L. She is not volume overloaded on exam, so I will stop scheduled Lasix so she does not have kidney injury. We can reassess if she is found to have ascites. (3) Hypoxemia Status: Acute Response to Treatment: Improving Problem Text: Patient off high flow Ventimask, now on nasal cannula. -Oxygen to maintain saturations above 90% -Plan to transfer out of ICU tomorrow if patient remains stable (4) Restless leg syndrome Status: Chronic Problem Text: Continue home ropinirole (5) DNR (do not resuscitate) Status: Chronic Problem Text: DNR/DNI Plan / VTE VTE Prophylaxis Ordered?: Yes Plan / Urinary Catheter Reason for insertion/continuin: Critical Pt monitoring Disposition Plan for transfer to stepdown unit 05/13/2016 Subjective Review of Systems CC/HPI The patient is a 60-year-old female admitted with a reason for visit of Shortness Of Breath. Events since last encounter Patient states that her breathing is improved today. She's had some desaturations with activity, although this is improved. She is not able to get out of bed without dyspnea. Constitutional: Denies: Chills, Fever Pulmonary: Reports: Cough (on productive), Denies: Dyspnea, Pleuritic Chest Pain Cardiovascular: Denies: Chest Pain, Edema, Orthopnea, Palpitations Gastrointestinal: Denies: Nausea, Vomiting Other systems 10 point review systems is otherwise negative Objective Physical Examination General Exam: Positive: Alert, Cooperative, No Acute Distress Eye Exam: Positive: Conjunctiva & lids normal, Negative: Sclera icteric ENT Exam: Positive: Mucous membr. moist/pink Neck Exam: Positive: Supple, Negative: JVD, thyromegaly Chest Exam: Positive: Other (absent breath sounds in right lower lobe, reduced breath sounds bilaterally) Heart Exam: Positive: Murmurs (2/6 systolic ejection murmur), Normal S1, Normal S2, Rate Normal Telemetry: Positive: No significant arrhythmia Abdomen Exam: Positive: Normal bowel sounds, Other (protuberant, obese), Soft, Negative: Tenderness Extremity Exam: Positive: Normal pulses, Negative: Clubbing, Cyanosis, Edema Skin Exam: Positive: Nl turgor and temperature, Negative: Rash Vital Signs/I&O Vital Signs Date Time Temp Pulse Resp B/P Pulse Ox O2 Delivery O2 Flow Rate FiO2 05/12/16 08:00 96.9 96 30 105/51 95 High Flow Cannula 15.0 05/12/16 03:15 80 I&O- Last 24 Hours up to 6 AM 05/12/16 06:00 Intake Total 1870 ml Output Total 5355 ml Balance -3485 ml Laboratory Data Labs 24H Laboratory Tests 2 05/12/16 05:03: Blood Urea Nitrogen 18, Creatinine 0.72, Sodium Level 140, Potassium Level 4.1, Chloride Level 96L, Carbon Dioxide Level 37H, Calcium Level 9.2, Aspartate Amino Transf (AST/SGOT) 6L, Alanine Aminotransferase (ALT/SGPT) 25, Alkaline Phosphatase 149H, Total Bilirubin 0.3, Total Protein 7.1, Albumin 3.0L, Albumin/ Globulin Ratio 0.73L, Anion Gap 7L, Glomerular Filtration Rate > 60.0 CBC/BMP Laboratory Tests 05/12/16 05:03 Calcium Level 9.2, Aspartate Amino Transf (AST/SGOT) 6 L, Alanine Aminotransferase (ALT/SGPT) 25, Alkaline Phosphatase 149 H, Total Bilirubin 0.3 , Total Protein 7.1, Albumin 3.0 L, Red Blood Count 5.23, Mean Corpuscular Volume 72.9 L, Mean Corpuscular Hemoglobin 22.8 L, Mean Corpuscular Hemoglobin Concent 31.2 L, Red Cell Distribution Width 18.9 H Microbiology Microbiology 05/11/16 Blood Culture - Preliminary, Resulted No growth after 24 hours . All specim... 05/11/16 Blood Culture - Preliminary, Resulted No growth after 24 hours . All specim... 05/11/16 Respiratory Virus Panel (PCR) ([facility]ENDRA) - Final, Complete 05/11/16 MRSA Screen, Received Pending MELONIE SHARMA MD May 12, 2016 10:57
[2016-05-12] MEDS: FAMOTIDINE 20 MG TAB PO SCH (12:42)
[2016-05-12] MEDS: SENNA 8.6 MG TAB (SENOKOT) PO SCH ×2 (12:42→21:37)
--- NOTE | 2016-05-12 20:54 | REP ---
Limited ultrasound to evaluate for ascites within the bilateral upper and lower quadrants 05/12/16 Transverse images were obtained of the bilateral upper and lower quadrants. There is no visualized ascites within the four quadrants of the abdomen/pelvis. Signed by Citlaly Carty MD 05/12/2016 08:45 P
--- NOTE | 2016-05-12 21:11 | CR ---
DATE: 05/11/2016 START TIME: 11 o'clock. I attended Faiza Bolivar here in the intensive care unit. Patient has been examined, chart reviewed. I spoke at length with her primary service. I reviewed all of her available laboratory and radiographic data. In essence, a 60-year-old female just discharged from the hospital 9 days ago with similar complaints. She is known to have small-cell lung cancer status post combined therapy, initially diagnosed 03/30/2016. She was admitted on April 19 with a left pleural effusion. Seemed to be increasing. This was drained. She had significant findings on the right chest as well that in the space of 6 days markedly improved, essentially with the use of diuretics. She was at her baseline, requiring supplement oxygen, and was able to be discharged on May 02. She presented today with increasing shortness of breath. Chest x-ray and CT scan are very similar to the scan from 04/19/2016. Left pleural effusion about the same. She has increased interstitial edema throughout the right chest with probably some air bronchograms at the right base. On supplemental oxygen she is less dyspneic. She is not known to be febrile. Heart rate about 100-110 with sinus mechanism. Respiratory rate 20-24 without accessory muscle use. Currently on 10-15 liters nasal cannula. Oxygen saturation 94%. LABORATORY STUDY: White blood cell count of 13.7. She is on prednisone. Hemoglobin 10.9, platelet count 384,000, 87% segmented neutrophils. No bands. Sodium 145, potassium 3.8, chloride 103, CO2 of 33, BUN 14, creatinine 0.59. BNP 96.9. Troponin 0.04. Blood gas done on high-flow cannula in the emergency room (ER) shows pH 7.458, pCO2 of 45, pO2 of 61.1. Radiographic studies outlined above. Medication list has been reviewed. IMPRESSION: 1. Hypoxemic respiratory failure, worsening. 2. Small-cell lung cancer, status post combined treatment. 3. Chronic left pleural effusion, recurrent. 4. Increased interstitial edema. 5. Diabetes mellitus, type 2. 6. History of breast cancer 2001, treated with XRT chemotherapy, lumpectomy, and tamoxifen. 7. Underlying central lobular edema. 8. Chronic longstanding tobacco abuse. RECOMMENDATIONS: I have spoken at length with the patient and the primary services. At this point, her effusion appears about the same as it did when she was admitted less than a month ago. Most striking really is the recurrence of her interstitial edema. At this point, she is on increased steroids and antibiotics from an infectious and obstructive lung disease standpoint, but I would aggressively diurese her. Including the 2 liters removed from her chest, she was negative almost 7 liters her last admission. She was on a decreased level of diuretics after discharge. At this point, we will proceed as outlined above. Certainly, if she does not improve diuretics, then we can certainly consider increasing her steroids for consideration of radiation pneumonitis as playing a role. Her effusion may need to be dealt with at some point. Consideration of either a Pleur-X catheter or formal drainage with talc slurry may be a consideration as well. According to the primary service notes, she is a DO NOT RESUSCITATE. I believe this is appropriate in view of her ongoing issues. She will be followed while she is here in the hospital. Further recommendations will be made in the progress record as new information is available.
[2016-05-12] MEDS: ACETAMINOPHEN 325 MG TAB PO PRN (21:35)
[2016-05-12] MEDS: ATORVASTATIN 20 MG TAB PO SCH (21:36)
[2016-05-13] VITALS (7 sets, daily range): BP systolic 107–121; BP diastolic 52–59; O2SAT 90
[2016-05-13] MEDS: IPRATROPIUM 0.5MG/ALBUTEROL 2.5MG INH SOL UD 3ML (DUONEB)(J7620) NEB SCH ×4 (01:09→19:44)
[2016-05-13] MEDS: PIPERACILLIN/TAZOBACTAM SOD 3.375 GM in D5W MINI-BAG PLUS 50 ML IV SCH ×3 (04:06→21:01)
[2016-05-13] MEDS: SLF 3 ML SYR IV SCH ×3 (05:00→21:01)
[2016-05-13 05:21] LABS: MEAN CORPUSCULAR HEMOGLOBIN 22.7 pg (27.0-33.0); MEAN CORPUSCULAR HGB CONC 30.6 g/dl (32.0-36.5); MEAN CORPUSCULAR VOLUME 74.2 fl (80.0-96.0); RED CELL DISTRIBUTION WIDTH 18.6 % (11.5-14.5); WHITE BLOOD COUNT 16.4 K/mm3 (4.0-10.0)
[2016-05-13 05:28] LABS: ALBUMIN 2.8 GM/DL (3.2-5.2); ALBUMIN/GLOBULIN RATIO 0.72 (1.00-1.93); ALKALINE PHOSPHATASE 147 U/L (45-117); ALT/SGPT 32 U/L (12-78); ANION GAP 10 MEQ/L (8-16); AST/SGOT 15 U/L (15-37); BILIRUBIN,TOTAL 0.3 MG/DL (0.2-1.0); BLOOD UREA NITROGEN 24 MG/DL (7-18); CALCIUM LEVEL 8.7 MG/DL (8.8-10.2); CARBON DIOXIDE LEVEL 35 MEQ/L (21-32); CHLORIDE LEVEL 95 MEQ/L (98-107); CREATININE FOR GFR 0.84 MG/DL (0.55-1.02); GLOMERULAR FILTRATION RATE > 60.0 (>45); GLUCOSE, FASTING 176 MG/DL (80-110); POTASSIUM SERUM 4.2 MEQ/L (3.5-5.1); SODIUM LEVEL 140 MEQ/L (136-145); TOTAL PROTEIN 6.7 GM/DL (6.4-8.2)
[2016-05-13] MEDS: rOPINIRole 1MG TAB PO SCH ×3 (08:33→20:58)
[2016-05-13] MEDS: ZONISAMIDE 100 MG CAP (ZONEGRAN) PO SCH ×2 (08:33→20:59)
[2016-05-13] MEDS: ENOXAPARIN 30 MG/0.3 ML SYR (J1650) SC SCH (08:33)
[2016-05-13] MEDS: guaiFENesin ER 600 MG TAB PO SCH ×2 (08:34→20:59)
[2016-05-13] MEDS: DULoxetine 30 MG CAP (CYMBALTA) PO SCH ×2 (08:34→21:00)
[2016-05-13] MEDS: ASPIRIN 81 MG ENTERIC TAB PO SCH (08:34)
[2016-05-13] MEDS: CALCIUM/VITAMIN D 500 MG TAB PO SCH (08:34)
[2016-05-13] MEDS: POTASSIUM CHLORIDE 10 MEQ SR TABLET PO SCH ×2 (08:35→20:59)
[2016-05-13] MEDS: BISACODYL 10 MG SUPP PR SCH ×2 (08:35→21:00)
[2016-05-13] MEDS: GABAPENTIN 300 MG CAP PO SCH ×3 (08:35→20:59)
[2016-05-13] MEDS: SENNA 8.6 MG TAB (SENOKOT) PO SCH ×2 (08:36→21:00)
[2016-05-13] MEDS: oxyBUTYnin *DITROPAN XL* 5 MG TABCR PO SCH (08:37)
--- NOTE | 2016-05-13 10:59 | IPNPDOC ---
Assessment/Plan Date Seen The patient was seen on 05/13/16. Problems Problems: (1) Shortness of breath Status: Acute Problem Text: D3 Zosyn 05/12 - bxPatient is improved somewhat on antibiotics and steroids. She continues to have a large pleural effusion, which is stable from previous. Her previous thoracentesis from her past admission yielded 1200 mL of yellow fluid. Cytology was negative for malignancy. Cytology was read as reactive mesothelial cells and admixed white blood cells. Acid-fast smear was negative. Sputum culture showed moderate gram-positive cocci in clusters. Pleural fluid grew no bacteria, and no organisms were seen on smear. Unclear whether or not there is any infectious etiology, however her previous studies do not indicate an infective source. It was also negative for malignancy. She does have a somewhat protuberant belly, so it is possible that this is ascitic fluid from her belly. BNP was 67 making acute heart failure less likely. She is currently diuresed 3 L. - Pulmonology consulting, appreciate recommendations - Continue ceftriaxone and prednisone for possible exacerbation of COPD versus underlying pneumonia - Continue supplemental oxygen to maintain saturations above 90 - Out of bed with assistance ad maria eugenia - Right upper quadrant ultrasound to evaluate liver of evidence of abdominal fluid 05/13 WBC 16.4 (13.7 admission)-favor moreso steroid effect-Patient's symptomatically improved today. Her diuretics were stopped yesterday in order to avoid RADHA, but per the note from Dr. Arias, they recommended continuation of diuresis as treatment for the pleural effusion. Restarted Lasix 40mg IV BID today and continue to monitor kidney function. . - Incentive spirometry at bedside, encouraged continued use. - Abd US yesterday negative for ascites. (2) Pleural effusion Status: Acute Response to Treatment: Stable Problem Text: 05/12 - No major changes noted on CT. Patient was previously tapped on last admission. BNP is normal, making CHF less likely. Patient has diuresed 3 L. She is not volume overloaded on exam, so I will stop scheduled Lasix so she does not have kidney injury. We can reassess if she is found to have ascites. 05/13 - Net negative 1.8L yesterday. Her lasix was stopped for fear of developing RADHA. Restarted today at much lower dose of 40mg IV BID. Continued as per recommendation of pulm. Will continue to monitor for any signs of RADHA. (3) Hypoxemia Status: Acute Response to Treatment: Improving Problem Text: 05/12 - Patient off high flow Ventimask, now on nasal cannula. -Oxygen to maintain saturations above 90% 05/13 - Stable 15L high flow NC at this time with sats in the upper 90's. Baseline O2 6L NC (4) Restless leg syndrome Status: Chronic Problem Text: Continue home ropinirole (5) DNR (do not resuscitate) Status: Chronic Problem Text: DNR/DNI Plan / VTE VTE Prophylaxis Ordered?: Yes Plan / Urinary Catheter Reason for insertion/continuin: Critical Pt monitoring Subjective Review of Systems CC/HPI The patient is a 60-year-old female admitted with a reason for visit of Shortness Of Breath. Events since last encounter Patient seen at bedside in the ICU this morning. She appears to be resting comfortably. She is still on 15L high-flow NC and sat'ing in the upper 90s. She states that her breathing is improved today, but continues to have signfiicant SOB with any activity. She would like to get up and walk around some to keep herself active and from deconditioning. Feels like she needs to cough out sputum but has not been able to get anything out. Constitutional: Denies: Chills, Fever Pulmonary: Reports: Dyspnea Cardiovascular: Denies: Chest Pain Gastrointestinal: Denies: Abdominal Pain, Constipation, Diarrhea, Nausea, Vomiting Genitourinary: Denies: Dysuria, Frequency Psych: Reports: Mood Normal Objective Physical Examination General Exam: Positive: Alert, Cooperative, No Acute Distress Eye Exam: Positive: Conjunctiva & lids normal, Negative: Sclera icteric ENT Exam: Positive: Mucous membr. moist/pink Neck Exam: Positive: Supple, Negative: JVD, thyromegaly Chest Exam: Positive: Other (absent breath sounds in right lower lobe, reduced breath sounds bilaterally) Heart Exam: Positive: Murmurs (2/6 systolic ejection murmur), Normal S1, Normal S2, Rate Normal Telemetry: Positive: No significant arrhythmia Abdomen Exam: Positive: Normal bowel sounds, Other (protuberant, obese), Soft, Negative: Tenderness Extremity Exam: Positive: Normal pulses, Negative: Clubbing, Cyanosis, Edema Skin Exam: Positive: Nl turgor and temperature, Negative: Rash Vital Signs/I&O Vital Signs Date Time Temp Pulse Resp B/P Pulse Ox O2 Delivery O2 Flow Rate FiO2 05/13/16 08:00 97.4 82 24 107/54 93 High Flow Cannula 15.0 05/12/16 03:15 80 I&O- Last 24 Hours up to 6 AM 05/13/16 06:00 Intake Total 1900 ml Output Total 1915 ml Balance -15 ml Laboratory Data Labs 24H Laboratory Tests 2 05/13/16 04:51: Blood Urea Nitrogen 24H, Creatinine 0.84, Sodium Level 140, Potassium Level 4.2 , Chloride Level 95L, Carbon Dioxide Level 35H, Calcium Level 8.7L, Aspartate Amino Transf (AST/SGOT) 15, Alanine Aminotransferase (ALT/SGPT) 32, Alkaline Phosphatase 147H, Total Bilirubin 0.3, Total Protein 6.7, Albumin 2.8L, Albumin/ Globulin Ratio 0.72L, Anion Gap 10, Glomerular Filtration Rate > 60.0 CBC/BMP Laboratory Tests 05/13/16 04:51 Calcium Level 8.7 L, Aspartate Amino Transf (AST/SGOT) 15, Alanine Aminotransferase (ALT/SGPT) 32, Alkaline Phosphatase 147 H, Total Bilirubin 0.3 , Total Protein 6.7, Albumin 2.8 L, Red Blood Count 5.05, Mean Corpuscular Volume 74.2 L, Mean Corpuscular Hemoglobin 22.7 L, Mean Corpuscular Hemoglobin Concent 30.6 L, Red Cell Distribution Width 18.6 H Microbiology Microbiology 05/11/16 Blood Culture - Preliminary, Resulted No Growth after 48 hours. All Specime... 05/11/16 Blood Culture - Preliminary, Resulted No Growth after 48 hours. All Specime... 05/11/16 Respiratory Virus Panel (PCR) ([facility]ITENDRA) - Final, Complete 05/11/16 MRSA Screen - Final, Complete GME ATTESTATION GME ATTESTATION My preceptor for this patient encounter was physically present in the building during the encounter and was fully available. As needed, all aspects of the patient interview, examination, medical decision making process, and medical care plan development were reviewed and approved by the preceptor. Preceptor is aware and concurs with the plan as stated in the body of this note and will attest to such by his/her cosignature. SERINA NI, DO May 13, 2016 10:59 Jigar Sun M.D. May 13, 2016 16:53 Jigar Sun M.D. May 13, 2016 16:53
--- NOTE | 2016-05-13 11:04 | EDDOCDS ---
Nurse's Notes [facility] Name: Faiza Bolivar Age: 60 yrs Sex: Female : 1955 Arrival Date: 05/11/2016 Time: 01:49 Bed Admit Hold Private MD: Shy Horvath NP Diagnosis: Other pneumonia, unspecified organism;Hypoxemia Presentation: 05/11 01:55 Presenting complaint: EMS states: patient admitted for pneumonia 3 weeks ago, patient nn1 reports difficulty breathing began this AM, progressively worsening symptoms. Patient had 1 duoneb treatment at 0000. Patient placed on 10L nonrebreather by EMS, O2 saturation increased from 86% to 99%. Adult Sepsis Screening: The patient does not have new or worsening altered mentation. Patient's respiratory rate is less than 22. Systolic blood pressure is greater than 100. Patient has a qSOFA score of 0- Negative Sepsis Screen. Suicide/Homicide risk assessment- the patient denies having any suicidal and/or homicidal ideations and does not present with any other emotional, behavioral or mental health complaints. 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 Transition of care: patient was not received from another setting of care. 01:55 Acuity: ERROL Level 3 nn1 01:55 Method Of Arrival: Ambulance nn1 Triage Assessment: 02:01 General: Appears in no apparent distress, comfortable, Behavior is appropriate for age, nn1 cooperative. Pain: Denies pain. HIV screening NA for this visit Offered previously. The patient is triaged at the bedside. See Assessment in Nurses Notes section of ED record. Respiratory: Onset: The symptoms/episode began/occurred yesterday, Airway is patent Respiratory effort is even, Respiratory pattern is regular, Breath sounds are clear bilaterally. Derm: Skin is yellow. Historical: - Allergies: No known drug Allergies; - Home Meds: 1. acetaminophen 325 mg Oral tab 2 tabs every 6 hours as needed 2. albuterol sulfate 90 mcg/actuation Inhl aepb 2 puffs every 2 jours as needed 3. aspirin 325 mg Oral tab 1 tab twice a day 4. [place] Saline nasal inha twice a day as needed 5. atorvastatin 20 mg oral tab 1 tab nightly 6. Celebrex 200 mg Oral cap 1 cap once daily 7. cyclobenzaprine 10 mg Oral tab 1 tab daily as needed 8. Cymbalta 60 mg Oral cpDR 1 cap twice a day 9. Dexilant 30 mg oral CpDB 1 cap once daily 10. famotidine 20 mg Oral tab 1 tab once daily 11. gabapentin 600 mg Oral tab 1 tab 3 times per day 12. Hydroxyzine 20 mg Oral 1 tab 4 times per day 13. meclizine 50 mg Oral tab 1 tab 2 times per day as needed 14. Pennsaid 2 % Topical 2 times per day 15. polyethylene glycol 3350 17 gram/dose oral powd once daily as needed 16. ropinirole 2 mg oral tab 1 tab 3 times per day 17. simethicone 166 mg Oral cap before meals as needed 18. tramadol 50 mg Oral tab 1 tab every 6 hours as needed 19. Vitamin D Oral 34073 unit every 2 weeks 20. zonisamide 100 mg oral cap 1 cap 2 times per day - PMHx: Fibromyalgia; GERD; lung cancer; Restless legs; rt breast cancer; Chaudhari's Esophagus; Anxiety; Vertigo; Depression; - PSHx: Elbow, left ulnar nerve; Tonsillectomy; Carpal Tunnel Repair- Right; Lumpectomy- Right; Elbow, right ulnar nerve; partial knee replacement left; left lung surgery; - Social history: Smoking status: Patient states former smoker of tobacco. No barriers to communication noted, The patient speaks fluent Hebrew, Speaks appropriately for age. - Family history: Not pertinent. - : The pt / caregiver states he / she is not on anticoagulants. Home medication list is obtained from [employer] import data. - Exposure Risk Screening:: None identified. Screenin:00 Screening information is obtained from the patient, the caregiver. Fall risk: At risk cf2 due to gait disturbance, O2 dependent, chronic shortness of breath . Assistance ADL's: Requires assistance with toileting, assistance is provided by ambulation, assistance is provided by housework, assistance is provided by. Abuse/DV Screen: The patient / caregiver reports he/she is: not in a situation that causes fear, pain or injury. Nutritional screening: No deficits noted. Advance Directives: There is an active DNR order and the pt has a copy here at this time. Further advance directive information is declined. home support is adequate. Assessment: 02:00 General: Appears uncomfortable. Pain: Denies pain. Neurological: No deficits noted. cf2 EENT: No deficits noted. Cardiovascular: No deficits noted. Rhythm is sinus rhythm. Cardiovascular: Chest pain is denied There has been no movement of pain. Reports shortness of breath. Respiratory: Airway is patent Respiratory effort is labored, pursed lip, with retractions, Respiratory pattern is tachypnea Breath sounds with rales Reports shortness of breath the patient has severe shortness of breath Parent/caregiver reports the patient having Per patient and sister (caregiver), patient was admitted here as patient approx 3 weeks ago for pleural effusion and pneumonia. Per patient. "they took 2 liters off on the left and i had pneumonia on the right side". GI: No deficits noted. : No deficits noted. Derm: No deficits noted. Musculoskeletal: No deficits noted. 02:00 Reassessment: Patient states symptoms have improved. cf2 04:39 Adult Sepsis Screening: The patient does not have new or worsening altered mentation. cf2 Patient has a respiratory rate of greater than or equal to 22 (1 point). Systolic blood pressure is greater than 100. Patient has a qSOFA score of 1- Negative Sepsis Screen. 07:01 General: Report received by Mara Carreon RN, awake and alert, visiting with dwg family member.. 07:20 General: Appears in no apparent distress, Behavior is cooperative, pleasant, Awake and dwg alert, sitting up in bed visiting with family members, NSR on monitor, denies chest pain.. 08:26 General: Appears in no apparent distress, Behavior is cooperative. Pain: Denies pain. dwg Neurological: Level of Consciousness is awake, alert, Oriented to person, place, time. Cardiovascular: Rhythm is sinus rhythm No ectopy. 08:35 General: Appears in no apparent distress, Behavior is cooperative. Neurological: Level dwg of Consciousness is awake, alert, Oriented to person, place, time. Respiratory: Airway is patent Respiratory effort is even, Respiratory pattern is regular, Breath sounds are diminished in left upper lobe and left lower lobe. 09:29 General: Appears in no apparent distress, Behavior is cooperative, Awake and alert, ate dwg 50% of breakfast tray, denies chest discomfort or shortness of breath. Family members present.. 09:52 General: Appears in no apparent distress, Behavior is cooperative, pleasant. Pain: dwg Denies pain. Neurological: Level of Consciousness is awake, alert, Oriented to person, place, time. Cardiovascular: Rhythm is sinus rhythm No ectopy. Respiratory: Airway is patent Respiratory effort is Slightly labored. 09:55 General: Report called to Inga in ICU.. [facility] Vital Signs: 02:01 BP 102 / 55; Pulse 83; Resp 24 S; Temp 97.8(TE); Pulse Ox 94% on 6 lpm NC; Weight 82.8 jp4 kg (M); Height 5 ft. 3 in. (160.02 cm) (R); Pain 4/10; 05:08 BP 122 / 45 (auto/); cf2 05:09 Pulse 94 MON; Pulse Ox 91% ; cf2 05:23 BP 132 / 75 (auto/); cf2 05:24 Pulse 92 MON; Pulse Ox 90% ; cf2 06:08 BP 92 / 60 (auto/); dwg 06:08 Pulse 95 MON; Pulse Ox 89% ; dwg 06:23 BP 147 / 62 (auto/); dwg 06:23 Pulse 93 MON; Pulse Ox 93% ; dwg 06:53 BP 137 / 74 (auto/); dwg 06:54 Pulse 95 MON; Pulse Ox 87% ; dwg 06:56 Pulse 87 MON; Pulse Ox 91% ; cf2 07:08 BP 128 / 58 (auto/); cf2 07:09 Pulse 97 MON; Pulse Ox 87% ; cf2 07:19 BP 103 / 60; Pulse 92; Resp 22; Temp 97.2(T); Pulse Ox 94% on R/A; dwg 07:23 BP 80 / 50 (auto/); dwg 07:24 Pulse 92 MON; Pulse Ox 94% ; dwg 08:35 BP 131 / 69; Pulse 92; Resp 20; Pulse Ox 93% on 5 lpm NC; dwg 09:29 BP 120 / 59; Pulse 91; Resp 20; Pulse Ox 92% on 5 lpm NC; Pain 0/10; dwg 02:01 Body Mass Index 32.34 (82.80 kg, 160.02 cm) jp4 Vitals: 04:47 Log In Time N/A - ambulance arrival. cf2 ED Course: 01:50 Patient visited by Ivonne Everett PCA. tmm1 01:50 Shy Horvath is Private Physician. tmm1 01:50 Patient moved to Waiting tmm1 01:50 Patient moved to 3 tmm1 01:57 Triage Initiated nn1 02:00 The patient / caregiver is instructed regarding the plan of care and ED course. Cardiac cf2 monitor on. Pulse ox on. NIBP on. Door closed. Noise minimized. Visitors limited. Lights dimmed. Moved to private room. PO fluids given. Verbal reassurance given. Warm blanket given. Pillow given. Diet: Patient given ice chips. Tolerated well. 02:00 Inserted saline lock: 20 gauge in left antecubital area and blood collected. The cf2 patient tolerated the procedure well. No procedures done that require assistance. Response to O2 therapy: Other With severe dyspnea NRB placed, when dyspnea resolves home O2 at 6 lpm nasal cannula applied. 02:03 Patient visited by Anshu Barros. jp4 02:03 Patient has correct armband on for positive identification. Placed in gown. Bed in low jp4 position. Call light in reach. Side rails up X2. 02:05 Rogers Cha DO is Attending Physician. mm11 02:05 Patient visited by Rogers Cha DO. mm11 02:16 Patient visited by Rogers Cha DO. mm11 02:30 EKG done. (by ED staff). Reviewed by Rogers Cha DO. jmv 02:32 Patient visited by Lai Baires PCA. jmv 02:32 Patient visited by Lai Baires PCA. jmv 02:34 Mara Davenport,YAEL is Primary Nurse. cf2 03:01 Patient moved to Radiology jason 03:02 Patient moved to 3 jason 03:46 Patient visited by Mara Davenport RN. cf2 04:07 CT Chest With Contrast Returned. EDMS 04:16 Patient name changed from Faiza\\S\\Estela\\S\\Catholic\\S\\ to Faiza\\S\\M\\S\\Catholic. EDMS 04:16 [facility] Payment Agreement was scanned into [employer] and attached to record. slh 04:23 Patient visited by Mara Davenport,YAEL. cf2 04:38 Patient visited by Mara Davenport,YAEL. cf2 05:10 Patient visited by Rogers Cha DO. mm11 05:10 Bill Anna is Hospitalizing Provider. mm11 05:42 Patient moved to Admit Hold sls1 06:43 Assisted to bedside commode. carly 06:44 Patient visited by Gaby Caal PCA. carly 07:02 Patient visited by Dennis Roberts, YAEL. dwg 07:21 Patient visited by Dennis Roberts, YAEL. dwg 08:27 Patient visited by Dennis Roberts, YAEL. dwg 08:36 Patient visited by Dennis Roberts, YAEL. dwg 09:30 Patient visited by Dennis Roberts, YAEL. dwg 09:59 Patient visited by Dennis Roberts, YAEL. dwg 10:03 Patient visited by Dennis Roberts RN. dwg 10:14 Chest, 1 View Returned. EDMS 12:45 T-Sheet-- Draft Copy was scanned into [employer] and attached to record. gb 12:46 PCR was scanned into [employer] and attached to record. gb 12:46 Rhythm Strip was scanned into [employer] and attached to record. gb Administered Medications: 03:06 Drug: Albuterol-Ipratropium 3 ml [ipratropium-albuterol 0.5 mg-3 mg(2.5 mg base)/3 mL dk nebulization soln (3 mL)] Route: Inhalation; 04:25 Drug: Piperacillin-Tazobactam 3.375 grams [piperacillin-tazobactam 3.375 gram cf2 intravenous solution] Route: IVPB; Infused Over: 30 mins; Site: left antecubital; 07:12 Follow up: Response: No Adverse Reaction cf2 Attachments: 12:46 Rhythm Strip gb RT: 03:06 ABG's drawn from left radial artery drawn from left brachial artery pressure held for 5 dk minuntes no bleeding noted pressure bandage applied specimen sent pt. tolerated well. 03:07 Initial Med Neb Given as ordered Patient was instructed and evaluated on procedure dk Patient tolerated procedure well without adverse effect. O2 via nasal cannula \\T\\ 5L/min. Respiratory: Airway is patent Respiratory effort is even, Respiratory pattern is regular symmetrical, Order Results: Lab Order: -Arterial Blood Gas; SPEC'M 05/11/16 02:50 Test: ABG pH (ARTERIAL); Value: 7.458; Range: 7.350-7.450; Abnormal: Above high normal; Units: UNITS; Status: F Test: ABG PARTIAL PRESSURE CO2; Value: 45.1; Range: 35.0-45.0; Abnormal: Above high normal; Units: mmHg; Status: F Test: ABG PARTIAL PRESSURE O2; Value: 61.1; Range: 75.0-100.0; Abnormal: Below low normal; Units: mmHg; Status: F Test: ABG TOTAL CO2; Value: 32.6; Range: 23.0-31.0; Abnormal: Above high normal; Units: MEQ/L; Status: F Test: ABG HCO3; Value: 31.2; Range: 22.0-26.0; Abnormal: Above high normal; Units: MEQ/L; Status: F Test: ABG BASE EXCESS; Value: 6.6; Range: -2.0-2.0; Abnormal: Above high normal; Status: F Test: ABG STANDARD HCO3; Value: 30.3; Range: 22.0-26.0; Abnormal: Above high normal; Units: MEQ/L; Status: F Test: ABG O2 SATURATION; Value: 91.9; Range: 95.0-99.0; Abnormal: Below low normal; Units: %; Status: F Test: ABG DEVICE; Value: NASAL MORAIMA; Status: F Lab Order: B-Type Natiuretic Peptide; SPEC' 05/11/16 02:21 Test: BRAIN NATRIURETIC PEPTIDE; Value: 96.9; Range: <100; Units: PG/ML; Status: F Lab Order: Basic Metabolic Profile; SPEC' 05/11/16 02:21 Test: GLUCOSE, FASTING; Value: 77; Range: 80-110; Abnormal: Below low normal; Units: MG/DL; Status: F Test: BLOOD UREA NITROGEN; Value: 14; Range: 7-18; Units: MG/DL; Status: F Test: CREATININE FOR GFR; Value: 0.59; Range: 0.55-1.02; Units: MG/DL; Status: F Test: GLOMERULAR FILTRATION RATE; Value: > 60.0; Range: >45; Status: F Test: SODIUM LEVEL; Value: 145; Range: 136-145; Units: MEQ/L; Status: F Test: POTASSIUM SERUM; Value: 3.8; Range: 3.5-5.1; Units: MEQ/L; Status: F Test: CHLORIDE LEVEL; Value: 103; Range: 98-107; Units: MEQ/L; Status: F Test: CARBON DIOXIDE LEVEL; Value: 33; Range: 21-32; Abnormal: Above high normal; Units: MEQ/L; Status: F Test: ANION GAP; Value: 9; Range: 8-16; Units: MEQ/L; Status: F Test: CALCIUM LEVEL; Value: 8.6; Range: 8.8-10.2; Abnormal: Below low normal; Units: MG/DL; Status: F Test Note: ; Units are mL/min/1.73 m2 Chronic Kidney Disease Staging per NKF: Stage I & II GFR >=60 Normal to Mildly Decreased Stage III GFR 30-59 Moderately Decreased Stage IV GFR 15-29 Severely Decreased Stage V GFR <15 Very Little GFR Left ESRD GFR <15 on [employer] ANALYST Lab Order: CBC with Diff; SPEC'M 05/11/16 02:21 Test: WHITE BLOOD COUNT; Value: 13.7; Range: 4.0-10.0; Abnormal: Above high normal; Units: K/mm3; Status: F Test: RED BLOOD COUNT; Value: 4.81; Range: 4.00-5.40; Units: M/mm3; Status: F Test: HEMOGLOBIN; Value: 10.9; Range: 12.0-16.0; Abnormal: Below low normal; Units: g/dl; Status: F Test: HEMATOCRIT; Value: 37.0; Range: 36.0-47.0; Units: %; Status: F Test: MEAN CORPUSCULAR VOLUME; Value: 76.8; Range: 80.0-96.0; Abnormal: Below low normal; Units: fl; Status: F Test: MEAN CORPUSCULAR HEMOGLOBIN; Value: 22.7; Range: 27.0-33.0; Abnormal: Below low normal; Units: pg; Status: F Test: MEAN CORPUSCULAR HGB CONC; Value: 29.6; Range: 32.0-36.5; Abnormal: Below low normal; Units: g/dl; Status: F Test: RED CELL DISTRIBUTION WIDTH; Value: 17.6; Range: 11.5-14.5; Abnormal: Above high normal; Units: %; Status: F Test: PLATELET COUNT, AUTOMATED; Value: 384; Range: 150-450; Units: k/mm3; Status: F Test: NEUTROPHILS %; Value: 85.9; Range: 36.0-66.0; Abnormal: Above high normal; Units: %; Status: F Test: LYMPH %; Value: 5.9; Range: 24.0-44.0; Abnormal: Below low normal; Units: %; Status: F Test: MONO %; Value: 4.8; Range: 0.0-5.0; Units: %; Status: F Test: EOS %; Value: 1.8; Range: 0.0-3.0; Units: %; Status: F Test: BASO %; Value: 0.1; Range: 0.0-1.0; Units: %; Status: F Test: LARGE UNSTAINED CELL %; Value: 1.4; Range: 0.0-4.0; Units: %; Status: F Test: NEUTROPHILS #; Value: 11.8; Range: 1.8-7.7; Abnormal: Above high normal; Units: K/mm3; Status: F Test: LYMPH #; Value: 0.8; Range: 1.5-4.5; Abnormal: Below low normal; Units: K/mm3; Status: F Test: MONO #; Value: 0.7; Range: 0.0-0.8; Units: K/mm3; Status: F Test: EOS #; Value: 0.2; Range: 0.0-0.50; Units: K/mm3; Status: F Test: BASO #; Value: 0.0; Range: 0.0-0.2; Units: K/mm3; Status: F Test: LARGE UNSTAINED CELL #; Value: 0.2; Range: 0.0-0.4; Units: K/mm3; Status: F Lab Order: Cardiac Injury Profile; SPEC'M 05/11/16 02:21 Test: CPK CREATINE PHOSPHOKINASE; Value: 24; Range: 26-192; Abnormal: Below low normal; Units: U/L; Status: F Test: CK-MB VALUE MASS; Value: 1.0; Range: 0.0-3.6; Units: NG/ML; Status: F Test: MB/CK RELATIVE INDEX; Value: 4.16; Range: < OR =4; Abnormal: Above high normal; Status: F Test Note: ; DIAGNOSIS CRITERIA MMB ng/ml Relative Index (RI) NON-AMI < or = 5 N/A [place] > 5 < or = 4 AMI > 5 > 4 Lab Order: Troponin; JOSE 05/11/16 02:21 Test: TROPONIN I; Value: 0.04; Range: < 0.10; Units: NG/ML; Status: F Test Note: ; Troponin I Reference Interval for Siemens [place] LOCI: 99th Percentile= 0.00-0.045 ng/ml Risk Stratification: <= 0.10 ng/ml Decreased Risk for Adverse Clinical Events. 0.10-1.50 ng/ml Increased Risk for Adverse Clinical Events. Evaluation of additional criterion and/or repeat testing in 2-6 hours is suggested to rule out myocardial damage. >= 1.50 ng/ml Indicative of Myocardial Injury. Radiology Order: Chest, 1 View Test: Chest, 1 View REASON FOR EXAMINATION: Shortness of Breath; ; PORTABLE CHEST:; ; AP portable view of the chest is performed and compared to a prior study of; 04/30/2016.; ; Diffuse bilateral infiltrates are present, similar to the prior exam. There is a; left pleural effusion. The heart size is not well evaluated.; ; IMPRESSION:; Diffuse bilateral infiltrates with mild to moderate left pleural effusion.; ; ; ; Unreviewed; Radiology Order: CT Chest With Contrast Test: CT Chest With Contrast REASON FOR EXAMINATION: Shortness of Breath; ; CLINICAL HISTORY: Shortness of breath.; TECHNIQUE: Multiple axial CT images were obtained through chest with IV contrast material. MPR fernandez; l and sagittal sequences were obtained.; COMMENTS:; Comparison is made to the prior exam performed on 04/25/2016.; No change in minimal right pleural effusion.; Mild increase in left pleural effusion.; Mild increase in passive atelectatic airspace disease a stat left lower lobe.; No change in enlarged pulmonary arteries suggestive of pulmonary hypertension.; No change in chronic interstitial pulmonary fibrosis, interstitial thickening, architectural distorti; on and traction bronchiectasis.; Increased groundglass densities of the lungs.; There is no evidence of pleural or parenchymal mass.; Mild increase in mediastinal lymphadenopathy.; The visualized portions of the liver are of uniform attenuation without mass or defect. There is no i; ntra or extrahepatic biliary ductal dilatation.; The spleen is unremarkable.; The visualized pancreas is of normal contour and attenuation characteristics.; There is no evidence of adrenal mass. The visualized portions of the kidneys present no abnormalities; .; The bony structures are free of lytic or blastic lesions. Multilevel degenerative changes are seen in; volving the thoracic spine.; Scattered calcifications are seen involving the aorta and visualized major branches compatible with a; therosclerosis.; IMPRESSION:; No change in minimal right pleural effusion.; Mild increase in left pleural effusion.; Mild increase in passive atelectatic airspace disease a stat left lower lobe.; No change in enlarged pulmonary arteries suggestive of pulmonary hypertension.; Increased groundglass densities of the lungs.; There is no evidence of pleural or parenchymal mass.; Mild increase in mediastinal lymphadenopathy.; Thank you for your kind referral of this patient.; ; ; Outcome: 02:00 CT Study completed. cf2 05:11 Decision to Hospitalize by Provider. mm11 10:02 Discharge Assessment: patient administered narcotics - no. Admitted to ICU accompanied dwg by nurse, accompanied by tech, via stretcher, with oxygen, on monitor, with chart. Condition: stable. Property :Personal belongings accompany Pt. 10:03 The following High Risk Discharge criteria are identified: None. dwg 10:03 Patient left the ED. dwg Signatures: Dispatcher [employer] EDDennis Cardoso, RN RN dwg Juan M Mcintyre Gloria, Reg Reg gb Ernestine Connors,RT RT Rogers Yuen, DO DO mm11 Gaby Caal, WINDOW AIR CONDITIONER INSTALLER WINDOW AIR CONDITIONER INSTALLER Adrianne Luevano, RN RN sls1 Ivonne Everett, WINDOW AIR CONDITIONER INSTALLER WINDOW AIR CONDITIONER INSTALLER tmm1 Anshu Barros jp4 Sue Doss Nikkole,RN RN nn1 Mara Davenport,RN RN cf2 Lai Baires, WINDOW AIR CONDITIONER INSTALLER WINDOW AIR CONDITIONER INSTALLER jmv Chart Complete MTDD
--- NOTE | 2016-05-13 11:04 | EDDOCDS ---
Physician Documentation [facility] Name: Faiza Bolivar Age: 60 yrs Sex: Female : 1955 Arrival Date: 05/11/2016 Time: 01:49 Bed Admit Hold Private MD: Shy Horvath NP Disposition: 05/11/16 05:11 Hospitalization ordered by Bill Anna for Inpatient Admission. Preliminary diagnosis are Other pneumonia, unspecified organism, Hypoxemia. - Bed requested for ICU. - Status is Inpatient Admission. dwg - Condition is Stable. - Problem is an acute exacerbation. - Symptoms have improved. Historical: - Allergies: No known drug Allergies; - Home Meds: 1. acetaminophen 325 mg Oral tab 2 tabs every 6 hours as needed 2. albuterol sulfate 90 mcg/actuation Inhl aepb 2 puffs every 2 jours as needed 3. aspirin 325 mg Oral tab 1 tab twice a day 4. Zebulon Saline nasal inha twice a day as needed 5. atorvastatin 20 mg oral tab 1 tab nightly 6. Celebrex 200 mg Oral cap 1 cap once daily 7. cyclobenzaprine 10 mg Oral tab 1 tab daily as needed 8. Cymbalta 60 mg Oral cpDR 1 cap twice a day 9. Dexilant 30 mg oral CpDB 1 cap once daily 10. famotidine 20 mg Oral tab 1 tab once daily 11. gabapentin 600 mg Oral tab 1 tab 3 times per day 12. Hydroxyzine 20 mg Oral 1 tab 4 times per day 13. meclizine 50 mg Oral tab 1 tab 2 times per day as needed 14. Pennsaid 2 % Topical 2 times per day 15. polyethylene glycol 3350 17 gram/dose oral powd once daily as needed 16. ropinirole 2 mg oral tab 1 tab 3 times per day 17. simethicone 166 mg Oral cap before meals as needed 18. tramadol 50 mg Oral tab 1 tab every 6 hours as needed 19. Vitamin D Oral 58743 unit every 2 weeks 20. zonisamide 100 mg oral cap 1 cap 2 times per day - PMHx: Fibromyalgia; GERD; lung cancer; Restless legs; rt breast cancer; Chaudhari's Esophagus; Anxiety; Vertigo; Depression; - PSHx: Elbow, left ulnar nerve; Tonsillectomy; Carpal Tunnel Repair- Right; Lumpectomy- Right; Elbow, right ulnar nerve; partial knee replacement left; left lung surgery; - Social history: Smoking status: Patient states former smoker of tobacco. No barriers to communication noted, The patient speaks fluent Nauruan, Speaks appropriately for age. - Family history: Not pertinent. - : The pt / caregiver states he / she is not on anticoagulants. Home medication list is obtained from [employer] import data. - Exposure Risk Screening:: None identified. Vital Signs: 05/11 02:01 BP 102 / 55; Pulse 83; Resp 24 S; Temp 97.8(TE); Pulse Ox 94% on 6 lpm NC; Weight 82.8 jp4 kg / 182.54 lbs (M); Height 5 ft. 3 in. (160.02 cm) (R); Pain 4/10; 05:08 BP 122 / 45 (auto/); cf2 05:09 Pulse 94 MON; Pulse Ox 91% ; cf2 05:23 BP 132 / 75 (auto/); cf2 05:24 Pulse 92 MON; Pulse Ox 90% ; cf2 06:08 BP 92 / 60 (auto/); dwg 06:08 Pulse 95 MON; Pulse Ox 89% ; dwg 06:23 BP 147 / 62 (auto/); dwg 06:23 Pulse 93 MON; Pulse Ox 93% ; dwg 06:53 BP 137 / 74 (auto/); dwg 06:54 Pulse 95 MON; Pulse Ox 87% ; dwg 06:56 Pulse 87 MON; Pulse Ox 91% ; cf2 07:08 BP 128 / 58 (auto/); cf2 07:09 Pulse 97 MON; Pulse Ox 87% ; cf2 07:19 BP 103 / 60; Pulse 92; Resp 22; Temp 97.2(T); Pulse Ox 94% on R/A; dwg 07:23 BP 80 / 50 (auto/); dwg 07:24 Pulse 92 MON; Pulse Ox 94% ; dwg 08:35 BP 131 / 69; Pulse 92; Resp 20; Pulse Ox 93% on 5 lpm NC; dwg 09:29 BP 120 / 59; Pulse 91; Resp 20; Pulse Ox 92% on 5 lpm NC; Pain 0/10; dwg 02:01 Body Mass Index 32.34 (82.80 kg, 160.02 cm) jp4 MDM: 02:16 -Blood Culture (Adults Only), peripheral from different site, or from device/port/PICC mm11 etc. if present ordered. 02:16 Call Respiratory ordered. mm11 02:16 Customer Servicer/Pulse Ox/q 15 min VS ordered. mm11 02:16 IV Saline Lock ordered. mm11 02:16 Oxygen at 4L/Min NC or Home dosage ordered. mm11 02:16 Rhythm Strip to chart ordered. mm11 02:16 Albuterol-Ipratropium 3 ml Inhalation once ordered. mm11 02:17 -Arterial Blood Gas Ordered. EDMS 02:17 -Blood Culture Ordered. EDMS 02:17 B-Type Natiuretic Peptide Ordered. EDMS 02:17 Basic Metabolic Profile Ordered. EDMS 02:17 CBC with Diff Ordered. EDMS 02:17 Cardiac Injury Profile Ordered. EDMS 02:17 Troponin Ordered. EDMS 02:17 ECG WITH READING ER PHYS+CARDIAG ordered. EDMS 02:18 Chest, 1 View Ordered. EDMS 02:23 Call Respiratory complete. tmm1 02:25 -Blood Culture (Adults Only), peripheral from different site, or from device/port/PICC tmm1 etc. if present complete. 02:26 BLOOD CULTURES Ordered. EDMS 03:04 -Arterial Blood Gas Reviewed. mm11 03:04 Basic Metabolic Profile Reviewed. mm11 03:04 CBC with Diff Reviewed. mm11 03:04 Cardiac Injury Profile Reviewed. mm11 03:04 Troponin Reviewed. mm11 03:06 CT Chest With Contrast Ordered. EDMS 04:04 Financial registration complete. slh 04:05 B-Type Natiuretic Peptide Reviewed. mm11 04:09 BED REQUEST+ADM ordered. EDMS 04:16 [facility] Payment Agreement was scanned into [employer] and attached to record. slh 04:20 Piperacillin-Tazobactam 3.375 grams IVPB once over 30 mins; dilute in 50mL of NS or D5W mm11 ordered. 05:04 CT Chest With Contrast Reviewed. mm11 05:19 Admission / Observation Status ordered. EDMS 09:39 REGULAR DIET ordered. EDMS 12:45 T-Sheet-- Draft Copy was scanned into [employer] and attached to record. gb 12:46 PCR was scanned into [employer] and attached to record. gb 12:46 Rhythm Strip was scanned into [employer] and attached to record. gb Administered Medications: 03:06 Drug: Albuterol-Ipratropium 3 ml [ipratropium-albuterol 0.5 mg-3 mg(2.5 mg base)/3 mL dk nebulization soln (3 mL)] Route: Inhalation; 04:25 Drug: Piperacillin-Tazobactam 3.375 grams [piperacillin-tazobactam 3.375 gram cf2 intravenous solution] Route: IVPB; Infused Over: 30 mins; Site: left antecubital; 07:12 Follow up: Response: No Adverse Reaction cf2 Signatures: Dispatcher [employer] EDMS Dennis Roberts RN Trinity Blanton RN RN mcp Jil Vidal, Yaya Reg gb Rogers Cha, DO mm11 McLear, Ivonne, CAMPAIGN WORKER CAMPAIGN WORKER tmm1 Romario, Sue [facility] Hossein Cancino RN RN nn1 Mara Davenport RN RN cf2 Ernestine Connors The chart was reviewed and I authenticate all verbal orders and agree with the evaluation and treatment provided.Corrections: (The following items were deleted from the chart) 09:39 05:19 REGULAR DIET ordered. EDMS EDMS Attachments: 04:16 [facility] Payment Agreement [facility] 12:45 T-Sheet-- Draft Copy Chart Complete [facility]
--- NOTE | 2016-05-13 11:04 | EDDOCDS ---
Physician Documentation [facility] Name: Faiza Bolivar Age: 60 yrs Sex: Female : 1955 Arrival Date: 05/11/2016 Time: 01:49 Bed Admit Hold Private MD: Shy Horvath NP Disposition: 05/11/16 05:11 Hospitalization ordered by Bill Anna for Inpatient Admission. Preliminary diagnosis are Other pneumonia, unspecified organism, Hypoxemia. - Bed requested for ICU. - Status is Inpatient Admission. dwg - Condition is Stable. - Problem is an acute exacerbation. - Symptoms have improved. Historical: - Allergies: No known drug Allergies; - Home Meds: 1. acetaminophen 325 mg Oral tab 2 tabs every 6 hours as needed 2. albuterol sulfate 90 mcg/actuation Inhl aepb 2 puffs every 2 jours as needed 3. aspirin 325 mg Oral tab 1 tab twice a day 4. [place]y Saline nasal inha twice a day as needed 5. atorvastatin 20 mg oral tab 1 tab nightly 6. Celebrex 200 mg Oral cap 1 cap once daily 7. cyclobenzaprine 10 mg Oral tab 1 tab daily as needed 8. Cymbalta 60 mg Oral cpDR 1 cap twice a day 9. Dexilant 30 mg oral CpDB 1 cap once daily 10. famotidine 20 mg Oral tab 1 tab once daily 11. gabapentin 600 mg Oral tab 1 tab 3 times per day 12. Hydroxyzine 20 mg Oral 1 tab 4 times per day 13. meclizine 50 mg Oral tab 1 tab 2 times per day as needed 14. Pennsaid 2 % Topical 2 times per day 15. polyethylene glycol 3350 17 gram/dose oral powd once daily as needed 16. ropinirole 2 mg oral tab 1 tab 3 times per day 17. simethicone 166 mg Oral cap before meals as needed 18. tramadol 50 mg Oral tab 1 tab every 6 hours as needed 19. Vitamin D Oral 00279 unit every 2 weeks 20. zonisamide 100 mg oral cap 1 cap 2 times per day - PMHx: Fibromyalgia; GERD; lung cancer; Restless legs; rt breast cancer; Chaudhari's Esophagus; Anxiety; Vertigo; Depression; - PSHx: Elbow, left ulnar nerve; Tonsillectomy; Carpal Tunnel Repair- Right; Lumpectomy- Right; Elbow, right ulnar nerve; partial knee replacement left; left lung surgery; - Social history: Smoking status: Patient states former smoker of tobacco. No barriers to communication noted, The patient speaks fluent Tuvaluan, Speaks appropriately for age. - Family history: Not pertinent. - : The pt / caregiver states he / she is not on anticoagulants. Home medication list is obtained from [employer] import data. - Exposure Risk Screening:: None identified. Vital Signs: 05/11 02:01 BP 102 / 55; Pulse 83; Resp 24 S; Temp 97.8(TE); Pulse Ox 94% on 6 lpm NC; Weight 82.8 jp4 kg / 182.54 lbs (M); Height 5 ft. 3 in. (160.02 cm) (R); Pain 4/10; 05:08 BP 122 / 45 (auto/); cf2 05:09 Pulse 94 MON; Pulse Ox 91% ; cf2 05:23 BP 132 / 75 (auto/); cf2 05:24 Pulse 92 MON; Pulse Ox 90% ; cf2 06:08 BP 92 / 60 (auto/); dwg 06:08 Pulse 95 MON; Pulse Ox 89% ; dwg 06:23 BP 147 / 62 (auto/); dwg 06:23 Pulse 93 MON; Pulse Ox 93% ; dwg 06:53 BP 137 / 74 (auto/); dwg 06:54 Pulse 95 MON; Pulse Ox 87% ; dwg 06:56 Pulse 87 MON; Pulse Ox 91% ; cf2 07:08 BP 128 / 58 (auto/); cf2 07:09 Pulse 97 MON; Pulse Ox 87% ; cf2 07:19 BP 103 / 60; Pulse 92; Resp 22; Temp 97.2(T); Pulse Ox 94% on R/A; dwg 07:23 BP 80 / 50 (auto/); dwg 07:24 Pulse 92 MON; Pulse Ox 94% ; dwg 08:35 BP 131 / 69; Pulse 92; Resp 20; Pulse Ox 93% on 5 lpm NC; dwg 09:29 BP 120 / 59; Pulse 91; Resp 20; Pulse Ox 92% on 5 lpm NC; Pain 0/10; dwg 02:01 Body Mass Index 32.34 (82.80 kg, 160.02 cm) jp4 MDM: 02:16 -Blood Culture (Adults Only), peripheral from different site, or from device/port/PICC mm11 etc. if present ordered. 02:16 Call Respiratory ordered. mm11 02:16 Associate Professor Of Psychology/Pulse Ox/q 15 min VS ordered. mm11 02:16 IV Saline Lock ordered. mm11 02:16 Oxygen at 4L/Min NC or Home dosage ordered. mm11 02:16 Rhythm Strip to chart ordered. mm11 02:16 Albuterol-Ipratropium 3 ml Inhalation once ordered. mm11 02:17 -Arterial Blood Gas Ordered. EDMS 02:17 -Blood Culture Ordered. EDMS 02:17 B-Type Natiuretic Peptide Ordered. EDMS 02:17 Basic Metabolic Profile Ordered. EDMS 02:17 CBC with Diff Ordered. EDMS 02:17 Cardiac Injury Profile Ordered. EDMS 02:17 Troponin Ordered. EDMS 02:17 ECG WITH READING ER PHYS+CARDIAG ordered. EDMS 02:18 Chest, 1 View Ordered. EDMS 02:23 Call Respiratory complete. tmm1 02:25 -Blood Culture (Adults Only), peripheral from different site, or from device/port/PICC tmm1 etc. if present complete. 02:26 BLOOD CULTURES Ordered. EDMS 03:04 -Arterial Blood Gas Reviewed. mm11 03:04 Basic Metabolic Profile Reviewed. mm11 03:04 CBC with Diff Reviewed. mm11 03:04 Cardiac Injury Profile Reviewed. mm11 03:04 Troponin Reviewed. mm11 03:06 CT Chest With Contrast Ordered. EDMS 04:04 Financial registration complete. slh 04:05 B-Type Natiuretic Peptide Reviewed. mm11 04:09 BED REQUEST+ADM ordered. EDMS 04:16 [facility] [place] Agreement was scanned into [employer] and attached to record. slh 04:20 Piperacillin-Tazobactam 3.375 grams IVPB once over 30 mins; dilute in 50mL of NS or D5W mm11 ordered. 05:04 CT Chest With Contrast Reviewed. mm11 05:19 Admission / Observation Status ordered. EDMS 09:39 REGULAR DIET ordered. EDMS 12:45 T-Sheet-- Draft Copy was scanned into [employer] and attached to record. gb 12:46 PCR was scanned into [employer] and attached to record. gb 12:46 Rhythm Strip was scanned into [employer] and attached to record. gb Administered Medications: 03:06 Drug: Albuterol-Ipratropium 3 ml [ipratropium-albuterol 0.5 mg-3 mg(2.5 mg base)/3 mL dk nebulization soln (3 mL)] Route: Inhalation; 04:25 Drug: Piperacillin-Tazobactam 3.375 grams [piperacillin-tazobactam 3.375 gram cf2 intravenous solution] Route: IVPB; Infused Over: 30 mins; Site: left antecubital; 07:12 Follow up: Response: No Adverse Reaction cf2 Signatures: Dispatcher [employer] EDMS Dennis Roberts RN Trinity Blanton RN RN mcp Jil Vidal, Yaya Reg gb Rogers Cha, DO mm11 McLear, Ivonne, FLAKER TENDER FLAKER TENDER tmm1 Romario, Sue [facility] Hossein Cancino RN RN nn1 Mara Davenport RN RN cf2 Ernestine Connors The chart was reviewed and I authenticate all verbal orders and agree with the evaluation and treatment provided.Corrections: (The following items were deleted from the chart) 09:39 05:19 REGULAR DIET ordered. EDMS EDMS Attachments: 04:16 [facility] Payment Agreement [facility] 12:45 T-Sheet-- Draft Copy Chart Complete [facility]
[2016-05-13] MEDS: methylPREDNISolone INJ 125 MG/2 ML VIAL (J2930) IV SCH ×2 (11:40→21:01)
[2016-05-13] MEDS: FAMOTIDINE 20 MG TAB PO SCH (11:40)
[2016-05-13] MEDS: traMADol 50 MG TAB PO PRN (11:47)
[2016-05-13] MEDS: FUROSEMIDE 40 MG/4 ML VIAL (J1940) IV SCH (17:13)
[2016-05-13] MEDS: ACETAMINOPHEN 325 MG TAB PO PRN (20:58)
[2016-05-13] MEDS: ATORVASTATIN 20 MG TAB PO SCH (21:00)
[2016-05-13] MEDS ORDERED: ONDANSETRON 4MG/2ML VIAL (J2405) IV PRN (22:15)
[2016-05-14] VITALS: BP 110/53
[2016-05-14] MEDS: IPRATROPIUM 0.5MG/ALBUTEROL 2.5MG INH SOL UD 3ML (DUONEB)(J7620) NEB SCH ×4 (01:24→19:20)
[2016-05-14 04:00] VITALS: BP 141/57
[2016-05-14] MEDS: PIPERACILLIN/TAZOBACTAM SOD 3.375 GM in D5W MINI-BAG PLUS 50 ML IV SCH ×2 (04:30→12:05)
[2016-05-14 04:39] LABS: MEAN CORPUSCULAR HEMOGLOBIN 23.1 pg (27.0-33.0); MEAN CORPUSCULAR HGB CONC 30.5 g/dl (32.0-36.5); MEAN CORPUSCULAR VOLUME 75.6 fl (80.0-96.0); WHITE BLOOD COUNT 12.6 K/mm3 (4.0-10.0)
[2016-05-14 04:54] LABS: ALBUMIN 2.7 GM/DL (3.2-5.2); ALBUMIN/GLOBULIN RATIO 0.71 (1.00-1.93); ALKALINE PHOSPHATASE 135 U/L (45-117); ALT/SGPT 64 U/L (12-78); ANION GAP 9 MEQ/L (8-16); AST/SGOT 30 U/L (15-37); BILIRUBIN,TOTAL 0.2 MG/DL (0.2-1.0); BLOOD UREA NITROGEN 20 MG/DL (7-18); CALCIUM LEVEL 8.6 MG/DL (8.8-10.2); CARBON DIOXIDE LEVEL 35 MEQ/L (21-32); CHLORIDE LEVEL 98 MEQ/L (98-107); CREATININE FOR GFR 0.57 MG/DL (0.55-1.02); GLOMERULAR FILTRATION RATE > 60.0 (>45); GLUCOSE, FASTING 128 MG/DL (80-110); POTASSIUM SERUM 4.3 MEQ/L (3.5-5.1); SODIUM LEVEL 142 MEQ/L (136-145); TOTAL PROTEIN 6.5 GM/DL (6.4-8.2)
[2016-05-14] MEDS: SLF 3 ML SYR IV SCH ×3 (05:07→21:58)
[2016-05-14 08:00] VITALS: BP 99/57
[2016-05-14] MEDS: ENOXAPARIN 30 MG/0.3 ML SYR (J1650) SC SCH (08:17)
[2016-05-14] MEDS: FUROSEMIDE 40 MG/4 ML VIAL (J1940) IV SCH ×2 (08:17→16:53)
[2016-05-14] MEDS: ZONISAMIDE 100 MG CAP (ZONEGRAN) PO SCH ×2 (08:18→21:56)
[2016-05-14] MEDS: oxyBUTYnin *DITROPAN XL* 5 MG TABCR PO SCH (08:18)
[2016-05-14] MEDS: CALCIUM/VITAMIN D 500 MG TAB PO SCH (08:18)
[2016-05-14] MEDS: rOPINIRole 1MG TAB PO SCH ×3 (08:18→21:57)
[2016-05-14] MEDS: DULoxetine 30 MG CAP (CYMBALTA) PO SCH ×2 (08:18→21:57)
[2016-05-14] MEDS: guaiFENesin ER 600 MG TAB PO SCH ×2 (08:19→21:57)
[2016-05-14] MEDS: GABAPENTIN 300 MG CAP PO SCH ×3 (08:19→21:57)
[2016-05-14] MEDS: POTASSIUM CHLORIDE 10 MEQ SR TABLET PO SCH ×2 (08:19→21:56)
[2016-05-14] MEDS: ASPIRIN 81 MG ENTERIC TAB PO SCH (08:19)
[2016-05-14] MEDS: SENNA 8.6 MG TAB (SENOKOT) PO SCH ×2 (08:19→21:00)
[2016-05-14] MEDS: BISACODYL 10 MG SUPP PR SCH ×2 (08:20→21:00)
--- NOTE | 2016-05-14 08:50 | REP ---
Portable chest x-ray: Single view. History: CHF. Comparison chest x-ray May 11, 2016. Findings: There is a large dense infiltrate in the left perihilar region with some adjacent pleural thickening and/or fluid laterally. Extensive interstitial infiltrate is seen throughout the right lung. These findings are essentially unchanged from the earlier film of 05/11/2016. The heart does not appear to be enlarged. EKG monitoring electrodes are noted. There are surgical clips in the right axillary soft tissues. Impression: Extensive bilateral infiltrates essentially unchanged. Signed by Shmuel Diaz MD 05/14/2016 09:17 A
--- NOTE | 2016-05-14 08:50 | IPNPDOC ---
Assessment/Plan Date Seen The patient was seen on 05/14/16. Problems Problems: (1) Shortness of breath Status: Acute Problem Text: D3 Zosyn 05/12 - bxPatient is improved somewhat on antibiotics and steroids. She continues to have a large pleural effusion, which is stable from previous. Her previous thoracentesis from her past admission yielded 1200 mL of yellow fluid. Cytology was negative for malignancy. Cytology was read as reactive mesothelial cells and admixed white blood cells. Acid-fast smear was negative. Sputum culture showed moderate gram-positive cocci in clusters. Pleural fluid grew no bacteria, and no organisms were seen on smear. Unclear whether or not there is any infectious etiology, however her previous studies do not indicate an infective source. It was also negative for malignancy. She does have a somewhat protuberant belly, so it is possible that this is ascitic fluid from her belly. BNP was 67 making acute heart failure less likely. She is currently diuresed 3 L. - Pulmonology consulting, appreciate recommendations - Continue ceftriaxone and prednisone for possible exacerbation of COPD versus underlying pneumonia - Continue supplemental oxygen to maintain saturations above 90 - Out of bed with assistance ad maria eugenia - Right upper quadrant ultrasound to evaluate liver of evidence of abdominal fluid 05/13 WBC 16.4 (13.7 admission)-favor moreso steroid effect-Patient's symptomatically improved today. Her diuretics were stopped yesterday in order to avoid RADHA, but per the note from Dr. Arias, they recommended continuation of diuresis as treatment for the pleural effusion. Restarted Lasix 40mg IV BID today and continue to monitor kidney function. . - Incentive spirometry at bedside, encouraged continued use. - Abd US yesterday negative for ascites. 05/14 - Patient continues to improve symptomatically. Her chest xray does show some minimal improvement today - No official reading yet. Will continue her current dosing of lasix at 40mg BID at this time. - Cr returned to baseline today. Continue encouraging incentive spirometry use. Patient will be transferred to med/surg floor as she no longer requires ICU and does not need cardiac monitoring in PCU. (2) Pleural effusion Status: Acute Response to Treatment: Stable Problem Text: 05/12 - No major changes noted on CT. Patient was previously tapped on last admission. BNP is normal, making CHF less likely. Patient has diuresed 3 L. She is not volume overloaded on exam, so I will stop scheduled Lasix so she does not have kidney injury. We can reassess if she is found to have ascites. 05/13 - Net negative 1.8L yesterday. Her lasix was stopped for fear of developing RADHA. Restarted today at much lower dose of 40mg IV BID. Continued as per recommendation of pulm. Will continue to monitor for any signs of RADHA. 05/14 - Net negative 790 mL yesterday. Will continue diuresing the patient for now. Pulm continues to follow. Discussed with Dr. Sierra differing possibilities of treatment, e.g. draining the fluid, pleurex cath, or leaving it alone. At this time she doesn't feel that the effusion is contributing very significantly to her symptoms. Most likely this is more due to the radiation damage or malignancy damage. If it appears later that she could get some mild improvement from draining it, we will consider it. 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 (3) Hypoxemia Status: Acute Response to Treatment: Improving Problem Text: 05/12 - Patient off high flow Ventimask, now on nasal cannula. -Oxygen to maintain saturations above 90% 05/13 - Stable 15L high flow NC at this time with sats in the upper 90's. Baseline O2 6L NC 05/14 - Patient still on 15L NC with sats in upper 90's. It does not appear they have been able to ween her down. Baseline home O2 6L NC. Patient hopes to be able to go home on less than 6L O2 due to the inconvenience of having to carry around so many tanks of oxygen. I am not sure how feasible this goal actually is given her current condition. (4) Restless leg syndrome Status: Chronic Problem Text: Continue home ropinirole (5) DNR (do not resuscitate) Status: Chronic Problem Text: DNR/DNI Plan / VTE VTE Prophylaxis Ordered?: Yes Plan / Urinary Catheter Reason for insertion/continuin: Critical Pt monitoring Subjective Review of Systems CC/HPI The patient is a 60-year-old female admitted with a reason for visit of Shortness Of Breath. Events since last encounter Patient seen at bedside in the ICU this morning. She states that she is breathing a little easier today. She managed to get up, was a short distance, and pivot without getting out of breath. She was very proud of being able to do that. Patient states that she does continue getting into coughing fits which makes her very SOB. She did have some nausea this morning, but it has resolved. General: Reports: Fatigue Constitutional: Reports: Malaise, Denies: Chills, Fever Pulmonary: Reports: Cough, Dyspnea Cardiovascular: Denies: Chest Pain, Palpitations Gastrointestinal: Reports: Nausea, Denies: Abdominal Pain, Constipation, Diarrhea, Hematochezia, Melena, Vomiting Genitourinary: Reports: Other Symptoms (garner) Neurological: Reports: Weakness Objective Physical Examination General Exam: Positive: Alert, Cooperative, No Acute Distress Eye Exam: Positive: Conjunctiva & lids normal, Negative: Sclera icteric ENT Exam: Positive: Mucous membr. moist/pink Neck Exam: Positive: Supple, Negative: JVD, thyromegaly Chest Exam: Positive: Other (absent breath sounds in right lower lobe, reduced breath sounds bilaterally), Negative: Normal air movement, Rales, Rhonchi, Wheezing Heart Exam: Positive: Murmurs (2/6 systolic ejection murmur), Normal S1, Normal S2, Rate Normal Telemetry: Positive: No significant arrhythmia Abdomen Exam: Positive: Normal bowel sounds, Other (obese), Soft, Negative: Tenderness Extremity Exam: Positive: Normal pulses, Negative: Clubbing, Cyanosis, Edema Skin Exam: Positive: Nl turgor and temperature, Negative: Rash Psych Exam: Positive: Oriented x 3 Vital Signs/I&O Vital Signs Date Time Temp Pulse Resp B/P Pulse Ox O2 Delivery O2 Flow Rate FiO2 05/14/16 04:00 96.7 80 22 141/57 97 High Flow Cannula 15.0 05/12/16 03:15 80 I&O- Last 24 Hours up to 6 AM 05/14/16 06:00 Intake Total 2070 ml Output Total 2870 ml Balance -800 ml Laboratory Data Labs 24H Laboratory Tests 2 05/14/16 04:21: Blood Urea Nitrogen 20H, Creatinine 0.57, Sodium Level 142, Potassium Level 4.3 , Chloride Level 98, Carbon Dioxide Level 35H, Calcium Level 8.6L, Aspartate Amino Transf (AST/SGOT) 30, Alanine Aminotransferase (ALT/SGPT) 64, Alkaline Phosphatase 135H, Total Bilirubin 0.2, Total Protein 6.5, Albumin 2.7L, Albumin/ Globulin Ratio 0.71L, Anion Gap 9, Glomerular Filtration Rate > 60.0 CBC/BMP Laboratory Tests 05/14/16 04:21 Calcium Level 8.6 L, Aspartate Amino Transf (AST/SGOT) 30, Alanine Aminotransferase (ALT/SGPT) 64, Alkaline Phosphatase 135 H, Total Bilirubin 0.2 , Total Protein 6.5, Albumin 2.7 L, Red Blood Count 4.94, Mean Corpuscular Volume 75.6 L, Mean Corpuscular Hemoglobin 23.1 L, Mean Corpuscular Hemoglobin Concent 30.5 L, Red Cell Distribution Width 17.0 H Microbiology Microbiology 05/11/16 Blood Culture - Preliminary, Resulted No Growth after 72 hours. All specime... 05/11/16 Blood Culture - Preliminary, Resulted No Growth after 72 hours. All specime... 05/11/16 Respiratory Virus Panel (PCR) (JITENDRA) - Final, Complete 05/11/16 MRSA Screen - Final, Complete GME ATTESTATION GME ATTESTATION My preceptor for this patient encounter was physically present in the building during the encounter and was fully available. As needed, all aspects of the patient interview, examination, medical decision making process, and medical care plan development were reviewed and approved by the preceptor. Preceptor is aware and concurs with the plan as stated in the body of this note and will attest to such by his/her cosignature. ATTENDING NOTE Attending Note I saw and evaluated the patient, and agree with the plan of care as discussed and documented above by the resident. A long discussion was had with Dr. Sierra, who believes that the patient is unlikely to improve. She recommended possibly pursuing a pleural VAC for palliative care versus sending the patient home on hospice with a maximum of 10 L flow rate and permissive hypoxia. This will be discussed with the patient tomorrow. MD LAST Valdes JOSEPH R, DO May 14, 2016 08:50 MELONIE SHARMA MD May 14, 2016 17:04
[2016-05-14] MEDS: methylPREDNISolone INJ 125 MG/2 ML VIAL (J2930) IV SCH ×2 (10:30→21:57)
[2016-05-14] MEDS: FAMOTIDINE 20 MG TAB PO SCH (12:05)
[2016-05-14 15:10] VITALS: BP 125/60
[2016-05-14] MEDS ORDERED: ACETAMINOPHEN TAB 650MG DOSE (2X325MG) PO PRN (15:10)
[2016-05-14] MEDS: PIPERACILLIN/TAZOBACTAM SOD 2.25 GM in D5W MINI-BAG PLUS 50 ML IV SCH (17:39)
[2016-05-14] MEDS: ATORVASTATIN 20 MG TAB PO SCH (21:57)
[2016-05-14 22:00] VITALS: BP 120/55
[2016-05-15] MEDS: IPRATROPIUM 0.5MG/ALBUTEROL 2.5MG INH SOL UD 3ML (DUONEB)(J7620) NEB SCH ×4 (00:09→20:07)
[2016-05-15] MEDS: PIPERACILLIN/TAZOBACTAM SOD 2.25 GM in D5W MINI-BAG PLUS 50 ML IV SCH ×4 (00:31→17:00)
[2016-05-15] MEDS: SLF 3 ML SYR IV SCH ×3 (05:57→21:01)
[2016-05-15 06:00] VITALS: BP 139/63
[2016-05-15 06:23] LABS: MEAN CORPUSCULAR HGB CONC 30.7 g/dl (32.0-36.5); MEAN CORPUSCULAR VOLUME 74.8 fl (80.0-96.0); RED CELL DISTRIBUTION WIDTH 18.3 % (11.5-14.5); WHITE BLOOD COUNT 13.7 K/mm3 (4.0-10.0)
[2016-05-15 06:43] LABS: ALBUMIN 2.8 GM/DL (3.2-5.2); ALBUMIN/GLOBULIN RATIO 0.68 (1.00-1.93); ALKALINE PHOSPHATASE 134 U/L (45-117); ALT/SGPT 69 U/L (12-78); ANION GAP 8 MEQ/L (8-16); AST/SGOT 21 U/L (15-37); BILIRUBIN,TOTAL 0.2 MG/DL (0.2-1.0); BLOOD UREA NITROGEN 20 MG/DL (7-18); CALCIUM LEVEL 9.3 MG/DL (8.8-10.2); CARBON DIOXIDE LEVEL 36 MEQ/L (21-32); CHLORIDE LEVEL 95 MEQ/L (98-107); CREATININE FOR GFR 0.58 MG/DL (0.55-1.02); GLOMERULAR FILTRATION RATE > 60.0 (>45); GLUCOSE, FASTING 111 MG/DL (80-110); POTASSIUM SERUM 4.2 MEQ/L (3.5-5.1); SODIUM LEVEL 139 MEQ/L (136-145); TOTAL PROTEIN 6.9 GM/DL (6.4-8.2)
[2016-05-15] MEDS: SENNA 8.6 MG TAB (SENOKOT) PO SCH ×3 (09:00→21:00)
[2016-05-15] MEDS: BISACODYL 10 MG SUPP PR SCH ×2 (09:00→21:00)
[2016-05-15] MEDS: methylPREDNISolone INJ 125 MG/2 ML VIAL (J2930) IV SCH ×2 (09:36→20:56)
[2016-05-15] MEDS: FUROSEMIDE 40 MG/4 ML VIAL (J1940) IV SCH ×2 (09:36→16:59)
[2016-05-15] MEDS: POTASSIUM CHLORIDE 10 MEQ SR TABLET PO SCH ×2 (09:36→20:57)
[2016-05-15] MEDS: oxyBUTYnin *DITROPAN XL* 5 MG TABCR PO SCH (09:36)
[2016-05-15] MEDS: GABAPENTIN 300 MG CAP PO SCH ×3 (09:36→20:57)
[2016-05-15] MEDS: ASPIRIN 81 MG ENTERIC TAB PO SCH (09:37)
[2016-05-15] MEDS: rOPINIRole 1MG TAB PO SCH ×3 (09:37→20:57)
[2016-05-15] MEDS: ZONISAMIDE 100 MG CAP (ZONEGRAN) PO SCH ×2 (09:37→20:57)
[2016-05-15] MEDS: guaiFENesin ER 600 MG TAB PO SCH ×2 (09:37→20:58)
[2016-05-15] MEDS: CALCIUM/VITAMIN D 500 MG TAB PO SCH (09:37)
[2016-05-15] MEDS: DULoxetine 30 MG CAP (CYMBALTA) PO SCH ×2 (09:37→20:57)
[2016-05-15] MEDS: ENOXAPARIN 30 MG/0.3 ML SYR (J1650) SC SCH (09:37)
[2016-05-15] MEDS: NYSTATIN 500,000 U/5 ML SUSP UDC SS SCH ×2 (12:30→21:00)
[2016-05-15] MEDS: FAMOTIDINE 20 MG TAB PO SCH (12:30)
--- NOTE | 2016-05-15 13:41 | IPNPDOC ---
Assessment/Plan Date Seen The patient was seen on 05/15/16. Problems Problems: (1) Shortness of breath Status: Acute Problem Text: 05/12 - Patient is improved somewhat on antibiotics and steroids. She continues to have a large pleural effusion, which is stable from previous. Her previous thoracentesis from her past admission yielded 1200 mL of yellow fluid. Cytology was negative for malignancy. Cytology was read as reactive mesothelial cells and admixed white blood cells. Acid-fast smear was negative. Sputum culture showed moderate gram-positive cocci in clusters. Pleural fluid grew no bacteria, and no organisms were seen on smear. Unclear whether or not there is any infectious etiology, however her previous studies do not indicate an infective source. It was also negative for malignancy. She does have a somewhat protuberant belly, so it is possible that this is ascitic fluid from her belly. BNP was 67 making acute heart failure less likely. She is currently diuresed 3 L. - Pulmonology consulting, appreciate recommendations - Continue ceftriaxone and prednisone for possible exacerbation of COPD versus underlying pneumonia - Continue supplemental oxygen to maintain saturations above 90 - Out of bed with assistance ad maria eugenia - Right upper quadrant ultrasound to evaluate liver of evidence of abdominal fluid 05/13 WBC 16.4 (13.7 admission)-favor moreso steroid effect-Patient's symptomatically improved today. Her diuretics were stopped yesterday in order to avoid RADHA, but per the note from Dr. Arias, they recommended continuation of diuresis as treatment for the pleural effusion. Restarted Lasix 40mg IV BID today and continue to monitor kidney function. .- Incentive spirometry at bedside, encouraged continued use. - Abd US yesterday negative for ascites. 05/14 - Patient continues to improve symptomatically. Her chest xray does show some minimal improvement today - No official reading yet. Will continue her current dosing of lasix at 40mg BID at this time. - Cr returned to baseline today. Continue encouraging incentive spirometry use. Patient will be transferred to med/surg floor as she no longer requires ICU and does not need cardiac monitoring in PCU. 05/15 - Patient does continue to symptomatically improve. Hospice and other comfort measures were discussed with the patient today. She does not wish yet to make a commitment to such measures, but she is aware of them as a potential option. Her CXR yesterday stated essentially unchanged. Will currently continue diuresing the patient with lasix 40mg bid as she continues to show improvement and there are no significant signs of kidney injury. Encouraged continued use of incentive spirometry. Continue antibiotic therapy with zosyn (day ) Continue attempting to wean the patient down from 15L O2 as tolerated. Pulmonology continues to follow. (2) Pleural effusion Status: Acute Response to Treatment: Stable Problem Text: 05/12 - No major changes noted on CT. Patient was previously tapped on last admission. BNP is normal, making CHF less likely. Patient has diuresed 3 L. She is not volume overloaded on exam, so I will stop scheduled Lasix so she does not have kidney injury. We can reassess if she is found to have ascites. 05/13 - Net negative 1.8L yesterday. Her lasix was stopped for fear of developing RADHA. Restarted today at much lower dose of 40mg IV BID. Continued as per recommendation of pulm. Will continue to monitor for any signs of RADHA. 05/14 - Net negative 790 mL yesterday. Will continue diuresing the patient for now. Pulm continues to follow. Discussed with Dr. Sierra differing possibilities of treatment, e.g. draining the fluid, pleurex cath, or leaving it alone. At this time she doesn't feel that the effusion is contributing very significantly to her symptoms. Most likely this is more due to the radiation damage or malignancy damage. If it appears later that she could get some mild improvement from draining it, we will consider it. 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 05/15 - Discussed with patient again the possibility of a pleurex cath, but that it would not be an option until next week due to Dr[place] Tariq [place]. At this time there does not appear to be an indication to drain the fluid from her PE via tap. Will continue to monitor patient daily. (3) Hypoxemia Status: Acute Response to Treatment: Improving Problem Text: 05/12 - Patient off high flow Ventimask, now on nasal cannula. -Oxygen to maintain saturations above 90% 05/13 - Stable 15L high flow NC at this time with sats in the upper 90's. Baseline O2 6L NC 05/14 - Patient still on 15L NC with sats in upper 90's. It does not appear they have been able to ween her down. Baseline home O2 6L NC. Patient hopes to be able to go home on less than 6L O2 due to the inconvenience of having to carry around so many tanks of oxygen. I am not sure how feasible this goal actually is given her current condition. 05/15 - Patient attempted to go to 13L early this morning, but was unable to tolerate it. She was changed back to 15L. She plans to try again later today to wean down. Will continue to monitor. Encouraged continued incentive spirometry use 10 times/hr. (4) Restless leg syndrome Status: Chronic Problem Text: Continue home ropinirole (5) DNR (do not resuscitate) Status: Chronic Problem Text: DNR/DNI Plan / VTE VTE Prophylaxis Ordered?: Yes Plan / Urinary Catheter Reason for insertion/continuin: Critical Pt monitoring Subjective Review of Systems CC/HPI The patient is a 60-year-old female admitted with a reason for visit of Shortness Of Breath. Events since last encounter Patient seen at [facility] this morning. She states that she is breathing a little better today. They did try to lower her to 13L overnight, but she was unable to tolerate it and had to go back to 15L. She spoke with Dr. Sierra yesterday who brought up the topic of going home with hospice care. The patient did want to know more about her options and it was discussed with the patient. She understands that there is not a "cure" for her situation with her lungs due to radiation damage and possible recurrence of malignancy. General: Reports: Fatigue Constitutional: Denies: Chills, Fever Pulmonary: Reports: Cough, Dyspnea (improved.) Cardiovascular: Denies: Chest Pain Gastrointestinal: Denies: Abdominal Pain, Constipation, Diarrhea, Hematochezia , Melena, Nausea, Vomiting Genitourinary: Denies: Dysuria, Frequency Psych: Reports: Mood Normal Objective Physical Examination General Exam: Positive: Alert, Cooperative, No Acute Distress Eye Exam: Positive: Conjunctiva & lids normal, Negative: Sclera icteric ENT Exam: Positive: Mucous membr. moist/pink Neck Exam: Positive: Supple, Negative: JVD, thyromegaly Chest Exam: Positive: Other (absent breath sounds in left lower lobe, reduced breath sounds bilaterally), Negative: Normal air movement, Rales, Rhonchi, Wheezing Heart Exam: Positive: Murmurs (2/6 systolic ejection murmur), Normal S1, Normal S2, Rate Normal Telemetry: Positive: No significant arrhythmia Abdomen Exam: Positive: Normal bowel sounds, Other (obese), Soft, Negative: Tenderness Extremity Exam: Positive: Normal pulses, Negative: Clubbing, Cyanosis, Edema Skin Exam: Positive: Nl turgor and temperature, Negative: Rash Neuro Exam: Positive: Normal Speech Psych Exam: Positive: Oriented x 3 Vital Signs/I&O Vital Signs Date Time Temp Pulse Resp B/P Pulse Ox O2 Delivery O2 Flow Rate FiO2 05/15/16 06:00 97.5 86 20 139/63 98 High Flow Cannula 05/15/16 00:10 13.0 05/12/16 03:15 80 I&O- Last 24 Hours up to 6 AM 05/15/16 06:00 Intake Total 2480 ml Output Total 2300 ml Balance 180 ml Laboratory Data Labs 24H Laboratory Tests 2 05/15/16 05:19: Blood Urea Nitrogen 20H, Creatinine 0.58, Sodium Level 139, Potassium Level 4.2 , Chloride Level 95L, Carbon Dioxide Level 36H, Calcium Level 9.3, Aspartate Amino Transf (AST/SGOT) 21, Alanine Aminotransferase (ALT/SGPT) 69, Alkaline Phosphatase 134H, Total Bilirubin 0.2, Total Protein 6.9, Albumin 2.8L, Albumin/ Globulin Ratio 0.68L, Anion Gap 8, Glomerular Filtration Rate > 60.0 CBC/BMP Laboratory Tests 05/15/16 05:19 Calcium Level 9.3, Aspartate Amino Transf (AST/SGOT) 21, Alanine Aminotransferase (ALT/SGPT) 69, Alkaline Phosphatase 134 H, Total Bilirubin 0.2 , Total Protein 6.9, Albumin 2.8 L, Red Blood Count 5.17, Mean Corpuscular Volume 74.8 L, Mean Corpuscular Hemoglobin 23.0 L, Mean Corpuscular Hemoglobin Concent 30.7 L, Red Cell Distribution Width 18.3 H Microbiology Microbiology 05/11/16 Blood Culture - Preliminary, Resulted No Growth after 72 hours. All specime... 05/11/16 Blood Culture - Preliminary, Resulted No Growth after 72 hours. All specime... 05/14/16 Clostridium difficile (PCR) - Final, Complete 05/14/16 MRSA Screen, Received Pending 05/11/16 Respiratory Virus Panel (PCR) (JITENDRA) - Final, Complete 05/11/16 MRSA Screen - Final, Complete GME ATTESTATION GME ATTESTATION My preceptor for this patient encounter was physically present in the building during the encounter and was fully available. As needed, all aspects of the patient interview, examination, medical decision making process, and medical care plan development were reviewed and approved by the preceptor. Preceptor is aware and concurs with the plan as stated in the body of this note and will attest to such by his/her cosignature. ATTENDING NOTE Attending Note Attending attestation: I saw and evaluated the patient, and agree with the plan of care as discussed and documented above by the resident. MD LAST Valdes JOSEPH R, DO May 15, 2016 13:40 MELONIE SHARMA MD May 17, 2016 11:58
[2016-05-15 14:00] VITALS: BP 111/56
[2016-05-15] MEDS: traMADol 50 MG TAB PO PRN (21:00)
[2016-05-15] MEDS: ATORVASTATIN 20 MG TAB PO SCH (21:01)
[2016-05-15 22:00] VITALS: BP 118/65
[2016-05-16] MEDS: PIPERACILLIN/TAZOBACTAM SOD 2.25 GM in D5W MINI-BAG PLUS 50 ML IV SCH ×5 (00:54→23:41)
[2016-05-16] MEDS: SLF 3 ML SYR IV SCH ×3 (00:56→21:26)
[2016-05-16] MEDS: IPRATROPIUM 0.5MG/ALBUTEROL 2.5MG INH SOL UD 3ML (DUONEB)(J7620) NEB SCH ×4 (01:17→19:18)
[2016-05-16 06:00] VITALS: BP 119/58
[2016-05-16 06:01] LABS: ALBUMIN 3.2 GM/DL (3.2-5.2); ALBUMIN/GLOBULIN RATIO 0.76 (1.00-1.93); ALKALINE PHOSPHATASE 128 U/L (45-117); ALT/SGPT 69 U/L (12-78); ANION GAP 7 MEQ/L (8-16); AST/SGOT 17 U/L (15-37); BILIRUBIN,TOTAL 0.3 MG/DL (0.2-1.0); BLOOD UREA NITROGEN 28 MG/DL (7-18); CALCIUM LEVEL 9.4 MG/DL (8.8-10.2); CARBON DIOXIDE LEVEL 36 MEQ/L (21-32); CHLORIDE LEVEL 93 MEQ/L (98-107); CREATININE FOR GFR 0.67 MG/DL (0.55-1.02); GLOMERULAR FILTRATION RATE > 60.0 (>45); GLUCOSE, FASTING 112 MG/DL (80-110); POTASSIUM SERUM 3.8 MEQ/L (3.5-5.1); SODIUM LEVEL 136 MEQ/L (136-145); TOTAL PROTEIN 7.4 GM/DL (6.4-8.2)
[2016-05-16 06:16] LABS: MEAN CORPUSCULAR HEMOGLOBIN 22.9 pg (27.0-33.0); MEAN CORPUSCULAR HGB CONC 30.3 g/dl (32.0-36.5); MEAN CORPUSCULAR VOLUME 75.6 fl (80.0-96.0); RED CELL DISTRIBUTION WIDTH 16.8 % (11.5-14.5); WHITE BLOOD COUNT 14.4 K/mm3 (4.0-10.0)
[2016-05-16] MEDS: BISACODYL 10 MG SUPP PR SCH ×2 (09:00→21:00)
[2016-05-16] MEDS: SENNA 8.6 MG TAB (SENOKOT) PO SCH ×2 (09:00→21:00)
--- NOTE | 2016-05-16 09:20 | IPNPDOC ---
Assessment/Plan Date Seen The patient was seen on 05/16/16. Problems Problems: (1) Shortness of breath Status: Acute Problem Text: 05/12 - Patient is improved somewhat on antibiotics and steroids. She continues to have a large pleural effusion, which is stable from previous. Her previous thoracentesis from her past admission yielded 1200 mL of yellow fluid. Cytology was negative for malignancy. Cytology was read as reactive mesothelial cells and admixed white blood cells. Acid-fast smear was negative. Sputum culture showed moderate gram-positive cocci in clusters. Pleural fluid grew no bacteria, and no organisms were seen on smear. Unclear whether or not there is any infectious etiology, however her previous studies do not indicate an infective source. It was also negative for malignancy. She does have a somewhat protuberant belly, so it is possible that this is ascitic fluid from her belly. BNP was 67 making acute heart failure less likely. She is currently diuresed 3 L. - Pulmonology consulting, appreciate recommendations - Continue ceftriaxone and prednisone for possible exacerbation of COPD versus underlying pneumonia - Continue supplemental oxygen to maintain saturations above 90 - Out of bed with assistance ad maria eugenia - Right upper quadrant ultrasound to evaluate liver of evidence of abdominal fluid 05/13 WBC 16.4 (13.7 admission)-favor moreso steroid effect-Patient's symptomatically improved today. Her diuretics were stopped yesterday in order to avoid RADHA, but per the note from Dr. Arias, they recommended continuation of diuresis as treatment for the pleural effusion. Restarted Lasix 40mg IV BID today and continue to monitor kidney function. .- Incentive spirometry at bedside, encouraged continued use. - Abd US yesterday negative for ascites. 05/14 - Patient continues to improve symptomatically. Her chest xray does show some minimal improvement today - No official reading yet. Will continue her current dosing of lasix at 40mg BID at this time. - Cr returned to baseline today. Continue encouraging incentive spirometry use. Patient will be transferred to med/surg floor as she no longer requires ICU and does not need cardiac monitoring in PCU. 05/15 - Patient does continue to symptomatically improve. Hospice and other comfort measures were discussed with the patient today. She does not wish yet to make a commitment to such measures, but she is aware of them as a potential option. Her CXR yesterday stated essentially unchanged. Will currently continue diuresing the patient with lasix 40mg bid as she continues to show improvement and there are no significant signs of kidney injury. Encouraged continued use of incentive spirometry. Continue antibiotic therapy with zosyn (day ) Continue attempting to wean the patient down from 15L O2 as tolerated. Pulmonology continues to follow. 05/16 O2 is being weaned down, and patient remains comfortable. (2) Pleural effusion Status: Acute Response to Treatment: Stable Problem Text: 05/12 - No major changes noted on CT. Patient was previously tapped on last admission. BNP is normal, making CHF less likely. Patient has diuresed 3 L. She is not volume overloaded on exam, so I will stop scheduled Lasix so she does not have kidney injury. We can reassess if she is found to have ascites. 05/13 - Net negative 1.8L yesterday. Her lasix was stopped for fear of developing RADHA. Restarted today at much lower dose of 40mg IV BID. Continued as per recommendation of pulm. Will continue to monitor for any signs of RADHA. 05/14 - Net negative 790 mL yesterday. Will continue diuresing the patient for now. Pulm continues to follow. Discussed with Dr. Sierra differing possibilities of treatment, e.g. draining the fluid, pleurex cath, or leaving it alone. At this time she doesn't feel that the effusion is contributing very significantly to her symptoms. Most likely this is more due to the radiation damage or malignancy damage. If it appears later that she could get some mild improvement from draining it, we will consider it. 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 05/15 - Discussed with patient again the possibility of a pleurex cath, but that it would not be an option until next week due to Dr. Tariq [place]. At this time there does not appear to be an indication to drain the fluid from her PE via tap. Will continue to monitor patient daily. 05/16 - Condition stable with decreasing O2 needs, no need for urgent tap, and she may not require a tap at all. (3) Hypoxemia Status: Acute Response to Treatment: Improving Problem Text: 05/12 - Patient off high flow Ventimask, now on nasal cannula. -Oxygen to maintain saturations above 90% 05/13 - Stable 15L high flow NC at this time with sats in the upper 90's. Baseline O2 6L NC 05/14 - Patient still on 15L NC with sats in upper 90's. It does not appear they have been able to ween her down. Baseline home O2 6L NC. Patient hopes to be able to go home on less than 6L O2 due to the inconvenience of having to carry around so many tanks of oxygen. I am not sure how feasible this goal actually is given her current condition. 05/15 - Patient attempted to go to 13L early this morning, but was unable to tolerate it. She was changed back to 15L. She plans to try again later today to wean down. Will continue to monitor. Encouraged continued incentive spirometry use 10 times/hr. 05/16 - weaning down O2 successfully. (4) Restless leg syndrome Status: Chronic Problem Text: Continue home ropinirole (5) DNR (do not resuscitate) Status: Chronic Problem Text: DNR/DNI Plan / VTE VTE Prophylaxis Ordered?: Yes Plan / Urinary Catheter Reason for insertion/continuin: Critical Pt monitoring Disposition 05/16 - Home with hospice Subjective Review of Systems CC/HPI The patient is a 60-year-old female admitted with a reason for visit of Shortness Of Breath. Events since last encounter Spoke with patient with family at bedside. They continue to be interested in hospice care, though it has not yet been arranged. Nursing has been titrating down her O2, and she feels comfortable on 5L as long as she is at rest. She does report loose stool, though she has a C diff PCR that was negative within the last couple days. Constitutional: Denies: Chills, Fever Pulmonary: Reports: Cough, Dyspnea Cardiovascular: Denies: Chest Pain, Palpitations Gastrointestinal: Reports: Diarrhea (loose stool), Denies: Abdominal Pain, Constipation, Nausea, Vomiting Musculoskeletal: Reports: Back Pain Objective Physical Examination General Exam: Positive: Alert, Cooperative, No Acute Distress Eye Exam: Positive: Conjunctiva & lids normal, Negative: Sclera icteric ENT Exam: Positive: Mucous membr. moist/pink Neck Exam: Positive: Supple, Negative: JVD, thyromegaly Chest Exam: Positive: Other (absent breath sounds in left lower lobe, reduced breath sounds bilaterally), Negative: Normal air movement, Rales, Rhonchi, Wheezing Heart Exam: Positive: Murmurs (2/6 systolic ejection murmur), Normal S1, Normal S2, Rate Normal Telemetry: Positive: No significant arrhythmia Abdomen Exam: Positive: Normal bowel sounds, Other (obese), Soft, Negative: Tenderness Extremity Exam: Positive: Normal pulses, Negative: Clubbing, Cyanosis, Edema Skin Exam: Positive: Nl turgor and temperature, Negative: Rash Neuro Exam: Positive: Normal Speech Psych Exam: Positive: Oriented x 3 Vital Signs/I&O Vital Signs Date Time Temp Pulse Resp B/P Pulse Ox O2 Delivery O2 Flow Rate FiO2 05/16/16 06:00 96.6 93 20 119/58 91 High Flow Cannula 6.0 05/12/16 03:15 80 I&O- Last 24 Hours up to 6 AM 05/16/16 05:59 Intake Total 2440 ml Output Total 3800 ml Balance -1360 ml Laboratory Data Labs 24H Laboratory Tests 2 05/16/16 05:13: Blood Urea Nitrogen 28H, Creatinine 0.67, Sodium Level 136, Potassium Level 3.8 , Chloride Level 93L, Carbon Dioxide Level 36H, Calcium Level 9.4, Aspartate Amino Transf (AST/SGOT) 17, Alanine Aminotransferase (ALT/SGPT) 69, Alkaline Phosphatase 128H, Total Bilirubin 0.3, Total Protein 7.4, Albumin 3.2, Albumin/ Globulin Ratio 0.76L, Anion Gap 7L, Glomerular Filtration Rate > 60.0 CBC/BMP Laboratory Tests 05/16/16 05:13 Calcium Level 9.4, Aspartate Amino Transf (AST/SGOT) 17, Alanine Aminotransferase (ALT/SGPT) 69, Alkaline Phosphatase 128 H, Total Bilirubin 0.3 , Total Protein 7.4, Albumin 3.2, Red Blood Count 5.42 H, Mean Corpuscular Volume 75.6 L, Mean Corpuscular Hemoglobin 22.9 L, Mean Corpuscular Hemoglobin Concent 30.3 L, Red Cell Distribution Width 16.8 H Microbiology Microbiology 05/11/16 Blood Culture - Final, Complete NO GROWTH AFTER 5 DAYS 05/11/16 Blood Culture - Final, Complete NO GROWTH AFTER 5 DAYS 05/14/16 Clostridium difficile (PCR) - Final, Complete 05/14/16 MRSA Screen - Final, Complete 05/11/16 Respiratory Virus Panel (PCR) (JITENDRA) - Final, Complete 05/11/16 MRSA Screen - Final, Complete YOANDY SOLORIO DO May 16, 2016 09:20
[2016-05-16] MEDS: methylPREDNISolone INJ 125 MG/2 ML VIAL (J2930) IV SCH ×2 (09:29→21:24)
[2016-05-16] MEDS: oxyBUTYnin *DITROPAN XL* 5 MG TABCR PO SCH (09:29)
[2016-05-16] MEDS: POTASSIUM CHLORIDE 10 MEQ SR TABLET PO SCH ×2 (09:30→21:24)
[2016-05-16] MEDS: NYSTATIN 500,000 U/5 ML SUSP UDC SS SCH ×2 (09:30→21:23)
[2016-05-16] MEDS: CALCIUM/VITAMIN D 500 MG TAB PO SCH (09:30)
[2016-05-16] MEDS: ZONISAMIDE 100 MG CAP (ZONEGRAN) PO SCH ×2 (09:30→21:24)
[2016-05-16] MEDS: DULoxetine 30 MG CAP (CYMBALTA) PO SCH ×2 (09:30→21:24)
[2016-05-16] MEDS: FUROSEMIDE 40 MG/4 ML VIAL (J1940) IV SCH ×2 (09:30→17:01)
[2016-05-16] MEDS: rOPINIRole 1MG TAB PO SCH ×3 (09:30→21:24)
[2016-05-16] MEDS: guaiFENesin ER 600 MG TAB PO SCH ×2 (09:30→21:24)
[2016-05-16] MEDS: ASPIRIN 81 MG ENTERIC TAB PO SCH (09:30)
[2016-05-16] MEDS: LACTOBACILLUS ACIDOPHILUS CAP (BACID) PO SCH ×2 (09:31→17:01)
[2016-05-16] MEDS: GABAPENTIN 300 MG CAP PO SCH ×3 (09:31→21:24)
[2016-05-16] MEDS: ENOXAPARIN 30 MG/0.3 ML SYR (J1650) SC SCH (12:34)
[2016-05-16] MEDS: FAMOTIDINE 20 MG TAB PO SCH (12:34)
[2016-05-16 14:00] VITALS: BP 137/63
[2016-05-16] MEDS: ATORVASTATIN 20 MG TAB PO SCH (21:25)
[2016-05-16 21:50] VITALS: BP 108/54
[2016-05-17 00:04] VITALS: O2SAT 97
[2016-05-17] MEDS: IPRATROPIUM 0.5MG/ALBUTEROL 2.5MG INH SOL UD 3ML (DUONEB)(J7620) NEB SCH ×3 (00:07→13:00)
[2016-05-17 05:13] VITALS: BP 112/57
[2016-05-17] MEDS: SLF 3 ML SYR IV SCH ×2 (05:15→14:00)
[2016-05-17] MEDS: PIPERACILLIN/TAZOBACTAM SOD 2.25 GM in D5W MINI-BAG PLUS 50 ML IV SCH ×2 (05:15→12:38)
[2016-05-17 06:17] LABS: MEAN CORPUSCULAR HEMOGLOBIN 22.6 pg (27.0-33.0); MEAN CORPUSCULAR VOLUME 75.4 fl (80.0-96.0); RED CELL DISTRIBUTION WIDTH 16.8 % (11.5-14.5); WHITE BLOOD COUNT 16.5 K/mm3 (4.0-10.0)
[2016-05-17 06:34] LABS: ALBUMIN 3.1 GM/DL (3.2-5.2); ALBUMIN/GLOBULIN RATIO 0.72 (1.00-1.93); ALKALINE PHOSPHATASE 134 U/L (45-117); ALT/SGPT 77 U/L (12-78); ANION GAP 12 MEQ/L (8-16); AST/SGOT 21 U/L (15-37); BILIRUBIN,TOTAL 0.3 MG/DL (0.2-1.0); BLOOD UREA NITROGEN 29 MG/DL (7-18); CALCIUM LEVEL 9.7 MG/DL (8.8-10.2); CARBON DIOXIDE LEVEL 30 MEQ/L (21-32); CHLORIDE LEVEL 95 MEQ/L (98-107); CREATININE FOR GFR 0.65 MG/DL (0.55-1.02); GLOMERULAR FILTRATION RATE > 60.0 (>45); GLUCOSE, FASTING 109 MG/DL (80-110); SODIUM LEVEL 137 MEQ/L (136-145); TOTAL PROTEIN 7.4 GM/DL (6.4-8.2)
[2016-05-17] MEDS: LACTOBACILLUS ACIDOPHILUS CAP (BACID) PO SCH (08:44)
[2016-05-17] MEDS: GABAPENTIN 300 MG CAP PO SCH (08:44)
[2016-05-17] MEDS: ZONISAMIDE 100 MG CAP (ZONEGRAN) PO SCH (08:44)
[2016-05-17] MEDS: rOPINIRole 1MG TAB PO SCH (08:45)
[2016-05-17] MEDS: guaiFENesin ER 600 MG TAB PO SCH (08:45)
[2016-05-17] MEDS: DULoxetine 30 MG CAP (CYMBALTA) PO SCH (08:45)
[2016-05-17] MEDS: ASPIRIN 81 MG ENTERIC TAB PO SCH (08:45)
[2016-05-17] MEDS: NYSTATIN 500,000 U/5 ML SUSP UDC SS SCH (08:45)
[2016-05-17] MEDS: POTASSIUM CHLORIDE 10 MEQ SR TABLET PO SCH (08:46)
[2016-05-17] MEDS: FUROSEMIDE 40 MG/4 ML VIAL (J1940) IV SCH (08:46)
[2016-05-17] MEDS: SENNA 8.6 MG TAB (SENOKOT) PO SCH (08:47)
[2016-05-17] MEDS: ENOXAPARIN 30 MG/0.3 ML SYR (J1650) SC SCH (08:47)
[2016-05-17] MEDS: CALCIUM/VITAMIN D 500 MG TAB PO SCH (08:47)
[2016-05-17] MEDS: BISACODYL 10 MG SUPP PR SCH (08:47)
[2016-05-17] MEDS: oxyBUTYnin *DITROPAN XL* 5 MG TABCR PO SCH (08:47)
[2016-05-17] MEDS: methylPREDNISolone INJ 125 MG/2 ML VIAL (J2930) IV SCH (08:50)
[2016-05-17] MEDS ORDERED: PANTOPRAZOLE 20 MG TAB PO SCH (09:00)
--- NOTE | 2016-05-17 09:15 | IPNPDOC ---
Assessment/Plan Date Seen The patient was seen on 05/17/16. Problems Problems: (1) Shortness of breath Status: Acute Problem Text: 05/17 - Patient has improved significantly with respect to oxygen requirements. She is down to 4L O2 at rest. She does feel she needs higher levels when walking. I have ordered a respiratory workup for oxygen titration when active. PT home safety eval ordered again for today as she did not pass her previous one. Lasix is still being continued at 40 IV BID dosing at this time. Patient may need small home dose of PO lasix to help control pleural effusion at this time. Continue current zosyn dosing Continue weaning patient as much as possible with O2. Anticipate discharge later this afternoon or tomorrow with outpatient hospice consult. (2) Pleural effusion Status: Acute Response to Treatment: Stable Problem Text: 05/17 - Lasix is still being continued at 40 IV BID dosing at this time. Patient may need small home dose of PO lasix to help control pleural effusion at this time. Symptomatically improving with respect to dyspnea. (3) Hypoxemia Status: Acute Response to Treatment: Improving Problem Text: 05/17 - Patient currently resting comfortably at 4L NC, however she does require more if she gets up to walk around. Home safety and home oxygen requirement testing ordered for today. (4) Restless leg syndrome Status: Chronic Problem Text: Continue home ropinirole (5) DNR (do not resuscitate) Status: Chronic Problem Text: DNR/DNI Plan / VTE VTE Prophylaxis Ordered?: Yes Plan / Urinary Catheter Reason for insertion/continuin: Critical Pt monitoring Subjective Review of Systems CC/HPI The patient is a 60-year-old female admitted with a reason for visit of Shortness Of Breath. Events since last encounter Patient seen at bedside this morning. She states that she is feeling much improved. She is down to 4L O2 via NC at this time. She has been up walking around some, having some difficulty on return trips due to dyspnea. She is also having some reflux symptoms. States that at home she takes an otc PPI that was not on her home med rec. She has been using her incentive spirometry approximately 10x/hr as indicated. No other acute complaints today. General: Reports: Fatigue Constitutional: Denies: Chills, Fever Pulmonary: Reports: Dyspnea, Denies: Cough Cardiovascular: Denies: Chest Pain, Palpitations Gastrointestinal: Reports: Diarrhea, Denies: Abdominal Pain, Constipation, Nausea, Vomiting Genitourinary: Denies: Dysuria, Frequency Objective Physical Examination General Exam: Positive: Alert, Cooperative, No Acute Distress Eye Exam: Positive: Conjunctiva & lids normal, Negative: Sclera icteric ENT Exam: Positive: Mucous membr. moist/pink Neck Exam: Positive: Supple, Negative: JVD, thyromegaly Chest Exam: Positive: Other (absent breath sounds in left lower lobe, reduced breath sounds bilaterally), Negative: Normal air movement, Rales, Rhonchi, Wheezing Heart Exam: Positive: Murmurs (2/6 systolic ejection murmur), Normal S1, Normal S2, Rate Normal Telemetry: Positive: No significant arrhythmia Abdomen Exam: Positive: Normal bowel sounds, Other (obese), Soft, Negative: Tenderness Extremity Exam: Positive: Normal pulses, Negative: Clubbing, Cyanosis, Edema Skin Exam: Positive: Nl turgor and temperature, Negative: Rash Neuro Exam: Positive: Normal Speech Psych Exam: Positive: Oriented x 3 Vital Signs/I&O Vital Signs Date Time Temp Pulse Resp B/P Pulse Ox O2 Delivery O2 Flow Rate FiO2 05/17/16 05:13 97.5 86 18 112/57 96 High Flow Cannula 5.0 05/12/16 03:15 80 I&O- Last 24 Hours up to 6 AM 05/17/16 05:59 Intake Total 1960 ml Output Total 4450 ml Balance -2490 ml Laboratory Data Labs 24H Laboratory Tests 2 05/17/16 05:12: Blood Urea Nitrogen 29H, Creatinine 0.65, Sodium Level 137, Potassium Level 4.0 , Chloride Level 95L, Carbon Dioxide Level 30, Calcium Level 9.7, Aspartate Amino Transf (AST/SGOT) 21, Alanine Aminotransferase (ALT/SGPT) 77, Alkaline Phosphatase 134H, Total Bilirubin 0.3, Total Protein 7.4, Albumin 3.1L, Albumin/ Globulin Ratio 0.72L, Anion Gap 12, Glomerular Filtration Rate > 60.0 CBC/BMP Laboratory Tests 05/17/16 05:12 Calcium Level 9.7, Aspartate Amino Transf (AST/SGOT) 21, Alanine Aminotransferase (ALT/SGPT) 77, Alkaline Phosphatase 134 H, Total Bilirubin 0.3 , Total Protein 7.4, Albumin 3.1 L, Red Blood Count 5.71 H, Mean Corpuscular Volume 75.4 L, Mean Corpuscular Hemoglobin 22.6 L, Mean Corpuscular Hemoglobin Concent 30.0 L, Red Cell Distribution Width 16.8 H Microbiology Microbiology 05/11/16 Blood Culture - Final, Complete NO GROWTH AFTER 5 DAYS 05/11/16 Blood Culture - Final, Complete NO GROWTH AFTER 5 DAYS 05/14/16 Clostridium difficile (PCR) - Final, Complete 05/14/16 MRSA Screen - Final, Complete 05/11/16 Respiratory Virus Panel (PCR) (JITENDRA) - Final, Complete 05/11/16 MRSA Screen - Final, Complete GME ATTESTATION GME ATTESTATION My preceptor for this patient encounter was physically present in the building during the encounter and was fully available. As needed, all aspects of the patient interview, examination, medical decision making process, and medical care plan development were reviewed and approved by the preceptor. Preceptor is aware and concurs with the plan as stated in the body of this note and will attest to such by his/her cosignature. ATTENDING NOTE Attending Note Attending attestation: I saw and evaluated the patient, and I agree with the plan of care as discussed and documented above by the resident. We'll plan to discharge home with home hospice consult. Patient will need a prescription for hospital bed, she is currently needing to sleep upright in a chair. Will need portable oxygen concentrator with flow rate up to 10 L. Will plan to discharge on Pred taper. Melonie Sharma MD LAST,SERINA Stallings DO May 17, 2016 09:15 MELONIE SHARMA MD May 17, 2016 11:53 Heart Exam: Positive: Murmurs (2/6 systolic ejection murmur), Normal S1, Normal S2, Rate Normal Telemetry: Positive: No significant arrhythmia Abdomen Exam: Positive: Normal bowel sounds, Other (obese), Soft, Negative: Tenderness Extremity Exam: Positive: Normal pulses, Negative: Clubbing, Cyanosis, Edema Skin Exam: Positive: Nl turgor and temperature, Negative: Rash Neuro Exam: Positive: Normal Speech Psych Exam: Positive: Oriented x 3 Vital Signs/I&O Vital Signs Date Time Temp Pulse Resp B/P Pulse Ox O2 Delivery O2 Flow Rate FiO2 05/17/16 05:13 97.5 86 18 112/57 96 High Flow Cannula 5.0 05/12/16 03:15 80 I&O- Last 24 Hours up to 6 AM 05/17/16 05:59 Intake Total 1960 ml Output Total 4450 ml Balance -2490 ml Laboratory Data Labs 24H Laboratory Tests 2 05/17/16 05:12: Blood Urea Nitrogen 29H, Creatinine 0.65, Sodium Level 137, Potassium Level 4.0 , Chloride Level 95L, Carbon Dioxide Level 30, Calcium Level 9.7, Aspartate Amino Transf (AST/SGOT) 21, Alanine Aminotransferase (ALT/SGPT) 77, Alkaline Phosphatase 134H, Total Bilirubin 0.3, Total Protein 7.4, Albumin 3.1L, Albumin/ Globulin Ratio 0.72L, Anion Gap 12, Glomerular Filtration Rate > 60.0 CBC/BMP Laboratory Tests 05/17/16 05:12 Calcium Level 9.7, Aspartate Amino Transf (AST/SGOT) 21, Alanine Aminotransferase (ALT/SGPT) 77, Alkaline Phosphatase 134 H, Total Bilirubin 0.3 , Total Protein 7.4, Albumin 3.1 L, Red Blood Count 5.71 H, Mean Corpuscular Volume 75.4 L, Mean Corpuscular Hemoglobin 22.6 L, Mean Corpuscular Hemoglobin Concent 30.0 L, Red Cell Distribution Width 16.8 H Microbiology Microbiology 05/11/16 Blood Culture - Final, Complete NO GROWTH AFTER 5 DAYS 05/11/16 Blood Culture - Final, Complete NO GROWTH AFTER 5 DAYS 05/14/16 Clostridium difficile (PCR) - Final, Complete 05/14/16 MRSA Screen - Final, Complete 05/11/16 Respiratory Virus Panel (PCR) (JITENDRA) - Final, Complete 05/11/16 MRSA Screen - Final, Complete GME ATTESTATION GME ATTESTATION My preceptor for this patient encounter was physically present in the building during the encounter and was fully available. As needed, all aspects of the patient interview, examination, medical decision making process, and medical care plan development were reviewed and approved by the preceptor. Preceptor is aware and concurs with the plan as stated in the body of this note and will attest to such by his/her cosignature. SERINA NI DO May 17, 2016 09:15
[2016-05-17] MEDS ORDERED: PRED10PA2 PO (12:20)
[2016-05-17] MEDS: FAMOTIDINE 20 MG TAB PO SCH (12:38)
--- NOTE | 2016-05-17 12:44 | DS.PDOC ---
Discharge Summary Date Of Admission May 11, 2016 at 05:09 Date of Discharge 05/17/16 Discharge Summary PRIMARY CARE PHYSICIAN: Ayde Horvath NP ATTENDING TODAY: Joseph Buenrostro MD SPECIALIST/CONSULTATIONS INVOLVED DURING STAY: Pulmonology PROCEDURES PERFORMED DURING STAY: None. COMPLICATIONS/CHIEF COMPLAINT: Shortness Of Breath ADMISSION DIAGNOSES: 1. Hypoxia 2. Respiratory distress 3. 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 breast cancer s/p radiation DISCHARGE DIAGNOSES: 1. Hypoxia 2. Respiratory distress 3. 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 breast cancer s/p radiation HISTORY OF PRESENT ILLNESS: The patient is a 60-year-old female with a past medical history significant for lung cancer status post chemoradiation, presented to the emergency room complaining of shortness of breath. The patient was recently admitted for pneumonia three weeks ago. Completed a course of antibiotics. Stated that over the past week, she has been feeling progressively worsening shortness of breath, chills, subjective fevers and dry cough. The patient normally on oxygen 6 liters. Today, she has been requiring more. Stated she gets short of breath with minimal activity. Finally called the ambulance and was brought in. She was found to have oxygen saturation to be 86%. She was placed on 10 liters non-rebreather by [facility] ([facility]). CT scan of her lungs were done. It showed no change in the right pleural effusion, mild increase in the left pleural effusion, increase in atelectatic air space disease in the left lower lobe. Evidence of pulmonary hypertension, increased ground-glass densities of the lung, no evidence of pleural or parenchymal masses. Hospitalist was called for an admission for [facility] COURSE: During her course of stay, the patient was initially kept in the ICU for 2 days due to such significant oxygen requirements and respiratory effort. Once she was stabilized on 15L NC, she was transferred to med surg. Pulmonology continued to follow her while on med-surg as well. She was kept on solumedrol 60mg IV BID throughout the course. She was also continued on diuresis therapy for the left pleural effusion. Draining the effusion was discussed with pulmonology, however it was felt that this was not the main cause of her SOB and thus would not gain significant benefit, partly because it was drained last visit and quickly reaccumulated. Discussion of a pleur-a-vac cath was had with patient, but it that would need to be done outpatient. She did continue to show signs of improvement each day. Pulm felt it most likely that this is a complication/recurrence of the small cell, rather than infectious etiology. Recent cytology from pleural fluid on last admission was negative for malignancy, though it has a low sensitivity rate. On 05/17/16 she had been weaned down to 4L O2 when at rest. She passed her home safety eval on . Patient was deemed stable and ready for discharge with home hospice consult. DISCHARGE MEDICATIONS: Please see below. ALLERGIES: Please see below. PHYSICAL EXAMINATION ON DISCHARGE: VITAL SIGNS: Please see below. GENERAL: no acute distress HEENT: EOMI, no sclera icterus NECK: supple CARDIOVASCULAR EXAMINATION: RRR, 2/6 systolic murmur RESPIRATORY EXAMINATION: decreased breath sounds, absent sounds LLL, no rales, ronchi, or wheezing ABDOMINAL EXAMINATION: soft, NT, positive bowel sounds, non-distended EXTREMITIES: no edema SKIN: intact NEUROLOGICAL EXAMINATION: CN 2-12 grossly intact PSYCHIATRIC EXAMINATION: appropriate mood and affect LABORATORY DATA: Please see below. IMAGING: CT Chest - No change in minimal right pleural effusion. Mild increase in left pleural effusion. Mild increase in passive atelectatic airspace disease a stat left lower lobe. No change in enlarged pulmonary arteries suggestive of pulmonary hypertension. Increased groundglass densities of the lungs. There is no evidence of pleural or parenchymal mass. Mild increase in mediastinal lymphadenopathy. VTE Prophylaxis ordered?: yes DISCHARGE CONDITION: stable DISPOSITION: home ACTIVITY: as tolerated DIET: regular ITEMS TO FOLLOWUP ON OUTPATIENT: hospice consult DISCHARGE PLAN AND INSTRUCTIONS: 1. F/u PCP in 3-5 days 2. Outpatient hospice consult 3. 4L O2 at rest, 8L O2 with activity 4. Prednisone taper as prescribed 5. prescriptions given for O2 concentrator and hospital bed. TIME SPENT ON DISCHARGE: Greater than 25 minutes. Vital Signs/I&Os Vital Signs Date Time Temp Pulse Resp B/P Pulse Ox O2 Delivery O2 Flow Rate FiO2 05/17/16 10:45 Nasal Cannula 4.0 05/17/16 05:13 97.5 86 18 112/57 96 05/12/16 03:15 80 I&O- Last 24 Hours up to 6 AM 05/17/16 06:00 Intake Total 2030 ml Output Total 3950 ml Balance -1920 ml Laboratory Data Labs 24H Laboratory Tests 2 05/17/16 05:12: Blood Urea Nitrogen 29H, Creatinine 0.65, Sodium Level 137, Potassium Level 4.0 , Chloride Level 95L, Carbon Dioxide Level 30, Calcium Level 9.7, Aspartate Amino Transf (AST/SGOT) 21, Alanine Aminotransferase (ALT/SGPT) 77, Alkaline Phosphatase 134H, Total Bilirubin 0.3, Total Protein 7.4, Albumin 3.1L, Albumin/ Globulin Ratio 0.72L, Anion Gap 12, Glomerular Filtration Rate > 60.0 CBC/BMP Laboratory Tests 05/17/16 05:12 Calcium Level 9.7, Aspartate Amino Transf (AST/SGOT) 21, Alanine Aminotransferase (ALT/SGPT) 77, Alkaline Phosphatase 134 H, Total Bilirubin 0.3 , Total Protein 7.4, Albumin 3.1 L, Red Blood Count 5.71 H, Mean Corpuscular Volume 75.4 L, Mean Corpuscular Hemoglobin 22.6 L, Mean Corpuscular Hemoglobin Concent 30.0 L, Red Cell Distribution Width 16.8 H Microbiology Microbiology 05/11/16 Blood Culture - Final, Complete NO GROWTH AFTER 5 DAYS 05/11/16 Blood Culture - Final, Complete NO GROWTH AFTER 5 DAYS 05/14/16 Clostridium difficile (PCR) - Final, Complete 05/14/16 MRSA Screen - Final, Complete 05/11/16 Respiratory Virus Panel (PCR) (JITENDRA) - Final, Complete 05/11/16 MRSA Screen - Final, Complete Medications Scheduled (Dexilant) 30 Mg Cap 30 MG PO DAILY (Pen[place]aid) 2 % Jonatan 2 % TOP BID APPLY TO KNEES Aspirin (Aspirin 81) 81 Mg Tab 81 MG PO DAILY Celecoxib (Celebrex) 200 Mg Cap 200 MG PO DAILY @1200 Duloxetine Hcl (Cymbalta) 60 Mg Cap 60 MG PO BID Famotidine (Famotidine) 20 Mg Tab 20 MG PO DAILY @1200 Furosemide (Furosemide) 40 Mg Tab 40 MG PO DAILY Gabapentin (Gabapentin) 600 Mg Tab 600 MG PO TID Guaifenesin (Mucinex) 600 Mg Tab 600 MG PO BID Oxybutynin Chloride (Oxybutynin Chloride ER) 15 Mg Tab 15 MG PO DAILY Prednisone (Prednisone) 10 Mg [place] 10 MG PO DAILY 50mg x 3 days, then 40mg x 3 days, then 30mg x 2 days, then 20mg x 2 days, then 10mg x 2 days, then stop. Ropinirole Hydrochloride (Ropinirole HCl) 2 Mg Tab 2 MG PO TID Vitamin D (Drisdol) 50,000 Unit Cap 50,000 UNIT PO Q2WK TUESDAY Zonisamide (Zonisamide) 100 Mg Cap 100 MG PO BID Scheduled PRN Acetaminophen (Tylenol) 325 Mg Tab 650 MG PO Q4H PRN PRN PAIN Albuterol Sulfate (Ventolin Hfa) 200 Puff/8 Gm Aers 2 PUFF INH Q2H PRN PRN SHORTNESS OF BREATH Albuterol/Ipratropium (Ipratropium [place]/Albut 0.5-2.5 (3) mg/3Ml) 1 Jonatan Jonatan 1 JONATAN NEB Q4H PRN PRN SOB/WHEEZING Hydroxyzine HCl (Hydroxyzine HCl) 10 Mg Tab 20 MG PO QID PRN PRN ITCHING Meclizine HCl (Meclizine HCl) 25 Mg Tab 25 MG PO BID PRN PRN DIZZINESS Polyethylene Glycol (Miralax) 1 Pow Pow 17 GM PO DAILY PRN PRN CONSTIPATION Simethicone (Gas-X) 80 Mg Chw 160 MG PO AC PRN PRN GAS PAIN Sodium Chloride ([place] Saline Nasal Gel) 1 Dose/15 Gm Dose 1 DOSE NA BID PRN PRN DRY NASALS Tramadol HCl (Tramadol HCl) 50 Mg Tab 50 MG PO QID PRN PRN PAIN Allergies Coded Allergies: Barbiturates (Unverified Allergy, Mild, RASH, 08/14/12) Butalbital (Unverified Allergy, Mild, RASH, 08/14/12) TAPE (Unverified Allergy, Unknown, BREAKOUT/SKIN PEELS OFF, 02/11/15) GME ATTESTATION GME ATTESTATION My preceptor for this patient encounter was physically present in the building during the encounter and was fully available. As needed, all aspects of the patient interview, examination, medical decision making process, and medical care plan development were reviewed and approved by the preceptor. Preceptor is aware and concurs with the plan as stated in the body of this note and will attest to such by his/her cosignature. JOSEPH NI DO May 17, 2016 12:44
[2016-05-17 14:00] VITALS: BP 122/58
== END 2016-05-17 15:08 | disposition home or self-care (01) | DRG 189 ==
LOC: M ED 01:49 → M ED INP 05:09 → M ICU 10:15 → M MSPAV 05-14 15:06
PROVIDERS: ADMIT Internal Medicine; ATTEND Family Medicine
DX: J96.21 Acute and chronic respiratory failure with hypoxia (principal); J44.1 Chronic obstructive pulmonary disease with (acute) exacerbation; J90 Pleural effusion, not elsewhere classified; I27.2 Other secondary pulmonary hypertension; Z66 Do not resuscitate; M79.7 Fibromyalgia; K21.9 Gastro-esophageal reflux disease without esophagitis; G25.81 Restless legs syndrome; F41.9 Anxiety disorder, unspecified; R42 Dizziness and giddiness; F32.9 Major depressive disorder, single episode, unspecified; K22.70 Barrett's esophagus without dysplasia; Z87.891 Personal history of nicotine dependence; Z92.21 Personal history of antineoplastic chemotherapy; Z85.118 Personal history of other malignant neoplasm of bronchus and lung; Z99.81 Dependence on supplemental oxygen; Z79.82 Long term (current) use of aspirin; Z79.899 Other long term (current) drug therapy; Z92.3 Personal history of irradiation; Z79.52 Long term (current) use of systemic steroids